=== PATIENT | female | born 1930 | race Caucasian/White ===

== ENCOUNTER 2017-01-08 18:21 | Inpatient (IN) | payer OTHER ==
[~2017-01-08] VITALS: Ht 144.8 cm; Wt 49.9 kg
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
[2017-01-08] MEDS ORDERED: AMLODIPINE BESYL5 M1 PO (18:53)
[2017-01-08] MEDS ORDERED: CARVEDILOL12.5 M1 PO (18:53)
[2017-01-08] MEDS ORDERED: ATORVASTATIN CA80 M1 PO (18:53)
[2017-01-08] MEDS ORDERED: DORZOLAMIDE-TIM10 ML OPH (18:54)
[2017-01-08] MEDS ORDERED: ALLOPURINOL100 M1 PO (18:55)
[2017-01-08] MEDS ORDERED: REVLIMID25 M1 PO (18:55)
[2017-01-08] MEDS ORDERED: PRILOSEC OTC20 M1 PO (18:55)
[2017-01-08] MEDS ORDERED: DEXAMETHASONE4 M1 PO (18:56)
[2017-01-08] MEDS ORDERED: ASPIRIN EC81 M1 PO (18:57)
[2017-01-08] MEDS ORDERED: LASIX40 M1 PO (19:12)
[2017-01-08] MEDS ORDERED: CENTRUM SILVER1 EACH PO (19:12)
[2017-01-08] MEDS ORDERED: KONSYL FIBER625 MG PO (19:13)
[2017-01-08] MEDS ORDERED: CALTRATE 600 +1 EACH PO (19:13)
[2017-01-08] MEDS ORDERED: NEURONTIN100 M1 PO (19:14)
[2017-01-08] MEDS ORDERED: VITAMIN B-121000 MC3 PO (19:15)
[2017-01-08] MEDS ORDERED: [UNRECOGNIZED DRUG - OTHER] PO (19:15)
--- NOTE | 2017-01-08 19:18 | RADIOLOGY REPORT ---
EXAMINATION: LEFT KNEE 3 VIEWS CLINICAL INFORMATION: Left knee pain after fall. COMPARISON: None. TECHNIQUE: AP, lateral, oblique views of the left knee were obtained. FINDINGS: There are no fractures or dislocations. There is no knee joint effusion. There is no significant soft tissue swelling. IMPRESSION: Unremarkable left knee radiographs.
--- NOTE | 2017-01-08 19:23 | RADIOLOGY REPORT ---
EXAMINATIONS: PELVIS 1 VIEW AND LEFT HIP 2 VIEWS CLINICAL INFORMATION: Left hip pain after fall. COMPARISON: None. TECHNIQUE: A supine view of the pelvis is provided. AP neutral and frog-leg lateral views of the left hip are provided. FINDINGS: There are no fractures. Both femoral heads are seated within well-formed acetabula. No dysplastic changes are identified. Moderate degenerative changes present within the lower lumbar spine. The visualized bowel gas pattern is unremarkable. IMPRESSION: No evidence for acute injury to the pelvis or left hip.
--- NOTE | 2017-01-08 20:41 | CT SCAN REPORT ---
EXAMINATION: CT PELVIS WITHOUT CONTRAST CLINICAL INFORMATION: Pelvic and hip pain after fall. COMPARISON: Same day pelvic and left hip radiographs. TECHNIQUE: Helical scanning was performed with submillimeter collimation through the pelvis. Sagittal and coronal multiplanar 2-D reconstructions were obtained. DLP: 1030 mGy-cm FINDINGS: PELVIS: There is no pelvic free fluid. Unopacified loops of small and large bowel are identified. The urinary bladder is markedly distended. A pessary is identified. There is a fat-containing right inguinal hernia. OSSEOUS STRUCTURES: There is a subcapital left femoral fracture without displacement or angulation. No additional acute osseous abnormalities are identified. IMPRESSION: Subcapital left femoral fracture without displacement or angulation.
[2017-01-08 22:19] LABS: ABSOLUTE BASOPHIL COUNT 0 /CUMM (0.0-0.2); ABSOLUTE EOSINOPHIL COUNT 0.1 /CUMM (0.0-0.7); ABSOLUTE GRANULOCYTE CT 9.7 /CUMM (1.4-6.5); ABSOLUTE LYMPH COUNT 0.7 /CUMM (1.2-3.4); ABSOLUTE MONOCYTE COUNT 0.1 /CUMM (0.10-0.60); BASOPHIL % 0 % (0.0-2.0); EOSINOPHIL % 0.8 % (0-5); HEMATOCRIT 32.5 % (37-47); MEAN CORPUSCULAR HGB 30.9 PG (27.0-31.0); MEAN CORPUSCULAR HGB CONC 32.4 G/DL (33.0-37.0); MEAN CORPUSCULAR VOLUME 95.6 FL (81.0-99.0); MEAN PLATELET VOLUME 9.6 FL (7.4-10.4); PLATELET COUNT 174 /CUMM (130-400); RBC DISTRIBUTION WIDTH 15.7 % (11.5-14.5); WHITE BLOOD CELL COUNT 10.6 /CUMM (4.8-10.8)
[2017-01-08 22:31] LABS: PT 11.3 SEC (9.4-12.5); PTT 27 SEC (25-37)
[2017-01-08 22:33] LABS: GRANULOCYTE % 91.6 % (42.2-75.2)
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
[2017-01-08 23:53] VITALS: BP 172/78
--- NOTE | 2017-01-09 01:34 | Admission Certification ---
Admission Certification Certification Statement - As attending physician, I certify that at the time of - admission, based on clinical presentation, severity of - symptoms, need for further diagnostic testing and - therapeutic interventions, and risk of adverse outcomes - without in-hospital treatment, in my clinical assessment, - this patient requires an acute hospital stay for a minimum - of two nights or longer. I have also considered psychsocial - factors such as support system, advanced age, financial - issues, cognitive issues, and failed out-patient treatments, - past re-admission history, safety of patient, and lack of - compliance as applicable. Specific rationale supporting this admission is: Mechanical fall, left hip fracture, needs inpatient admission for pain management, Ortho consult and repair, followed by PT eval and STR.
--- NOTE | 2017-01-09 02:56 | History & Physical ---
LATOYA FORRESTER,WARD 01/09/17 0256: General Information and HPI MD Statement: I have seen and personally examined JEREMY GARCIA and documented this H&P. The patient is a 86 year old F who presented with a patient stated chief complaint of [fall]. Source of Information: patient, family Exam Limitations: no limitations History of Present Illness: This is a 86-year-old female past medical history significant for CAD status post stent, multiple myeloma on treatment with Revlimid, hypertension, IBS, chronic pain, who was brought in by ambulance for chief complaint of left hip pain status post fall. Patient described it as a mechanical fall after tripping on her rug. Denies any prodrome, chest pain, palpitation, dizziness, confusion, denies loss of consciousness, no head trauma, loss of bladder, or loss of bowel. She was able to get up after the fall, but was not able to bear weight fully on her left leg. Patient states that pain is worsened by movement. She had taken tramadol earlier in the day as part of her regimen for her chronic pain. Allergies/Medications Home Med list Allopurinol 100 MG TABLET 1 TAB PO DAILY GOUT (Reported) Amlodipine Besylate 5 MG TABLET 1 TAB PO DAILY BP (Reported) Aspirin (Ecotrin*) 81 MG TABLET.DR 162 MG PO DAILY HEART/BLOOD (Reported) Atorvastatin Calcium 80 MG TABLET 1 TAB PO DAILY CHOLESTEROL (Reported) Calcium Carbonate/Vitamin D3 (Caltrate 600 + D Tablet) (Unknown Strength) TABLET (Unknown Dose) PO DAILY SUPPLEMENT (Reported) Calcium Polycarbophil (Konsyl Fiber) (Unknown Strength) TABLET (Unknown Dose) PO BID SUPPLEMENT (Reported) Carvedilol 12.5 MG TABLET 1 TAB PO BID BP (Reported) Cyanocobalamin (Vitamin B-12) 1,000 MCG TABLET 1 TAB PO DAILY SUPPLEMENT ( Reported) Dexamethasone 4 MG TABLET 5 TAB PO Q28D STEROID (Reported) Dorzolamide HCl/Timolol Maleat (Dorzolamide-Timolol Eye Drops) 22.3 MG-6.8 MG/ML DROPS 1 GTT OPH DAILY BOTH EYES (Reported) Furosemide (Lasix) 40 MG TABLET 1 TAB PO PRN DIURETIC (Reported) Gabapentin (Neurontin) 100 MG CAPSULE 1 CAP PO TID NERVE PAIN (Reported) Lenalidomide (Revlimid) 25 MG CAPSULE 1 CAP PO QTUES CHEMO (Reported) [METAFOLIN] 800 MCG PO DAILY SUPPLEMENT (Reported) Multivit-Min/Iron/Folic/Lutein (Centrum Silver Women Tablet) 8 MG IRON-400 MCG- 300 MCG TABLET 1 TAB PO DAILY SUPPLEMENT (Reported) Omeprazole Magnesium (Prilosec Otc) 20 MG TABLET. 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 Home Services at Home: None Smoking Status: Never Smoked Illicit Drug Use: denies illicit drug use Functional Ability ADLs Independent: dressing, eating, toileting, bathing. IADLs Independent: shopping, housework, finances, food prep, telephone, transportation , medication admin. Review of Systems Review of Systems Constitutional: Denies: chills, diaphoresis, fever, malaise, weakness. EENTM: Reports: no symptoms. Denies: blurred vision, visual changes. Cardiovascular: Denies: chest pain, palpitations. Respiratory: Denies: cough, short of breath. GI: Denies: abdominal pain. Genitourinary: Reports: no symptoms. Musculoskeletal: Reports: back pain, joint pain, muscle pain, muscle stiffness. Skin: Reports: no symptoms. Neurological/Psychological: Reports: no symptoms. Exam & Diagnostic Data Last 24 Hrs of Vital Signs/I&O Vital Signs Date Time Temp Pulse Resp B/P Pulse O2 O2 Flow FiO2 Ox Delivery Rate 01/09 0057 82 172/78 01/08 2353 98.3 83 20 172/78 93 Room Air 01/08 1836 97.0 66 18 188/87 97 Room Air Intake & Output 01/09 0800 01/09 0000 01/08 1600 Intake Total Output Total Balance Patient 50.349 kg 49.895 kg Weight Physical Exam General Appearance Alert, Oriented X3, Cooperative, No Acute Distress Skin No Rashes, No Breakdown, No Significant Lesion HEENT Atraumatic, PERRLA, EOMI Neck Supple Cardiovascular Pt has 3/6 systolic murmur that is particularly loud in mitral area and seems to radiate to axilla. However, murmur is generally heard throughout examination, particularly in Ao area as well. Lungs Normal Air Movement Abdomen Soft, No Tenderness Extremities last lower extremity shows no evidence of cyanosis, open fracture, erythema, contusion. Patient tender and on femur and hip. No tenderness to knee or ankle. Vascular Normal Pulses, Pulses Symmetrical Last 24 Hrs of Labs/[place]: Laboratory Tests 01/08/17 2212: Anion Gap 12, Estimated GFR 43 L, BUN/Creatinine Ratio 18.3, Glucose 95, Calcium 9.8, Total Bilirubin 0.8, AST 40 H, ALT 36, Alkaline Phosphatase 69, Total Protein 6.9, Albumin 4.4, Globulin 2.5, Albumin/Globulin Ratio 1.8, PT 11.3, INR 1.08, APTT 27, CBC w Diff NO MAN DIFF REQ, RBC 3.40 L, MCV 95.6, MCH 30.9, RDW 15.7 H, MPV 9.6, Gran % 91.6 H, Lymphocytes % 6.2 L, Monocytes % 1.4 L, Eosinophils % 0.8, Basophils % 0 L, Absolute Granulocytes 9.7 H, Absolute Lymphocytes 0.7 L, Absolute Monocytes 0.1 L, Absolute Eosinophils 0.1 , Absolute Basophils 0, PUBS MCHC 32.4 L Microbiology 01/08 2258 URINE ROUT: Urine Culture - RECD Assessment/Plan Assessment: This is a 86-year-old female past medical history single for CAD status post stent, multiple myeloma undergoing treatment with Revlimid, hypertension, diabetes, chronic pain who was brought in by ambulance for chief complaint of hip pain status post mechanical fall. CT confirms subcapital left femoral fracture without displacement. Patient admitted to medical service for risk assessment prior to orthopedic procedure in a.m. ED workup shows: Vitals: 97.0, 66, 18, 188/87, 97. CBC shows white count 10.6, hemoglobin 10.5, hematocrit 32.5, platelet 174. INR 1.08. Sodium 138, potassium 3.9, chloride 100, CO2 26, BUN 22, creatinine 1.2 CT PELVIS IMPRESSION: Subcapital left femoral fracture without displacement or angulation. Plan: 1. Subcapital left femoral fracture: Plan is for left hip pIN versus hemiarthroplasty tomorrow. She is CAD s/p PCI, only on baby aspirin. She requires cardiac clearance prior to procedure. RCRI =1. * Nothing by mouth at midnight * Bedrest * Mechanical DVT prophylaxis * Pain control * Echocardiogram * Thank you ortho consult 2. Multiple Myeloma: Pt on weekly Revlimid and followed by Dr. King. Chronic and stable. * Con't Revlimid 3. HTN: Pt with BP in 170s initially. Likely 2/2 pain and underlying HTN. * Con't home regimen. FULL CODE NPO [facility] Dvt PPX. As Ranked By This Provider Problem List: 1. Fall 2. Subcapital fracture of femur Core Measures/Miscellaneous Acute Coronary Syndrome ACS Diagnosis: No Cerebrovascular Accident CVA/TIA Diagnosis: No Congestive Heart Failure CHF Diagnosis: No Venous Thromboembolism VTE Risk Factors: Acute medical illness, Age > 40 No [facility] VTE prophylaxis d/t: No contraindications No VTE Pharm Prophylaxis d/t: Surgical contraindication VTE Diagnosis: No VTE Type: NONE VTE Confirmed by (Test): NONE Severe Sepsis Severe Sepsis Present: No Septic Shock Septic Shock Present: No Miscellaneous Documentation Attending Case Discussed With: MONIKA PATEL MD Primary Care Physician: BRIANA ALCANTAR MD Patient sees these Specialists Dr. Christine Horan Level of Patient Care: General Medicine GABBY FORRESTER,[facility] 01/09/17 0256: Resident Review Statement Resident Statement: examined this patient, discussed with fashion buying internship, agreed with fashion buying internship, discussed with family, reviewed EMR data (avail), discussed with nursing , discussed with case mgmt, reviewed images, amended to note Other Findings: Jeremy is an 86-year-old woman with a medical history of multiple myeloma hypertension coronary artery disease with stent IBS chronic pain syndrome who presents with a mechanical fall resulting in a left subcapital femoral fracture. She is awake alert oriented, does not appear ill. Her pain is well controlled she denies any other symptoms after review in detail. She is afebrile blood pressure is elevated at 172/78 heart rate is 83, she saturating 93-97% on room air. Labs are notable for normocytic anemia, creatinine is 1.2. RCRI score 1. - Problems - Left subcapital femoral fracture Multiple myeloma Coronary artery disease Hypertension - Plan - Nothing by mouth at midnight Adequate pain control Anticipating surgery Cardiology consultation Echocardiogram Orthopedic consultation Continue Revlimid Continue antihypertensive medications DVT prophylaxis heparin Full code AMANDA FORRESTER, [facility] 01/09/17 0519: General Information and HPI Allergies/Medications Allergies: Coded Allergies: lactose (Intermediate, INTOLERANT 01/09/17) Attending MD Review Statement Attending Statement Attending MD Statement: examined this patient, discuss w/resident/PA/PRODUCTION LINE ASSEMBLER, agreed w/resident/PA/PRODUCTION LINE ASSEMBLER, discussed with family Attending Assessment/Plan: 86 yo F with h/o HTN, CAD s/p stent (20 yrs ago), multiple myeloma on Revlimid and dexamethasone (follows Dr. King @ [facility]), osteoarthritis, chronic pain on tramadol, osteoporosis (receives infusions, last in Oct 2016), is here s/p mechanical fall sustaining a left subcapital femoral fracture. She was unable to bear weight on her left leg with excruciating pain, hence came to ER. She denies CP, palpitations, dyspnea or lightheadedness. Denies head strike or LOC. She follows with Dr. Aung Cheema ([facility] at [place]). She has a h/o CKD in the setting of multiple myeloma. No baseline renal functions available in [place] records. No h/o DM, CHF or stroke. Vitals stable except for hypertension in the setting of pain. Exam: AAO, dry mucous membranes, Chest b/l clear, Heart S1S2 regular, systolic murmur+, LLE: shortened, peripheral pulses well felt. Labs: H/H 10.5/32.5, INR 1.08, BUN 22, creat 1.2 (no baseline available), AST 40. Imaging revealed left subcapital femoral fracture with no displacement or angulation. EKG: SR, nonspecific T wave changes (no previous EKG). 1. Mechanical fall now with left femur fracture. GM admit, NPO, IV fluids, pain management, per RCRI she has 1 risk factor (CAD s/p stent in the setting of positive stress test), no CHF/s troke, DM or creat > 2.0; placing her at 1.3 percent risk of perioperative major cardiac event, ok to proceed with surgery. Will check troponin, obtain Echo and Cardio consult for clearance prior to surgery. 2. Multiple myeloma. Ct. Revlimid (once a week) and dexamethasone (once a month) . 3. h/o CAD. Ct. Carvedilol, atorvastatin. Hold aspirin prior to surgery. DVT ppx Alps, post surgery can change to Hep SC. Full code.
[2017-01-09 06:23] VITALS: BP 138/64
--- NOTE | 2017-01-09 07:14 | PN- Orthopedic ---
Subjective Subjective: The patient was seen this morning. She reports that she was having significant pain in her left leg but just received some pain medication which helped significantly. She has no other complaints at the current time. Objective Vital Signs and I&Os Vital Signs Date Time Temp Pulse Resp B/P Pulse O2 O2 Flow FiO2 Ox Delivery Rate 01/09 0623 98.1 72 20 138/64 86 Room Air 01/09 0559 94 Nasal 2.0L Cannula 01/09 0057 82 172/78 01/08 2353 98.3 83 20 172/78 93 Room Air 01/08 1836 97.0 66 18 188/87 97 Room Air Intake & Output 01/09 0800 01/09 0000 01/08 1600 01/08 0800 01/08 0000 01/07 1600 Intake Total Output Total 600 Balance -600 Output, Urine 600 Patient 111 lb 110 lb Weight Physical Exam: Gen.: Alert and in no obvious distress Skin: Warm and dry Extremities: Bilateral lower extremities are warm without calf tenderness. Gross motor and sensory are intact. Left lower extremity shortened and rotated. Left hip with some tenderness upon palpation. There is some mild edema in the calf but compartments are soft and the overlying skin is intact. Assessment/Plan Assessment/Plan Assessment: 86-year-old female status post fall who sustained a left femoral fracture requiring operative repair. The patient's will be brought to the operating theater if deemed an acceptable risk by her primary team and cardiology. Recommendations: Keep nothing by mouth with IV hydration PRN pain medications Strict bed rest until operative repair GI and DVT prophylaxis Follow-up morning laboratory studies
[2017-01-09 08:19] LABS: ABSOLUTE BASOPHIL COUNT 0 /CUMM (0.0-0.2); ABSOLUTE EOSINOPHIL COUNT 0.3 /CUMM (0.0-0.7); ABSOLUTE GRANULOCYTE CT 8.1 /CUMM (1.4-6.5); ABSOLUTE LYMPH COUNT 0.5 /CUMM (1.2-3.4); ABSOLUTE MONOCYTE COUNT 0.6 /CUMM (0.10-0.60); BASOPHIL % 0.2 % (0.0-2.0); EOSINOPHIL % 2.6 % (0-5); MEAN CORPUSCULAR HGB 30.9 PG (27.0-31.0); MEAN CORPUSCULAR HGB CONC 32.7 G/DL (33.0-37.0); MEAN CORPUSCULAR VOLUME 94.4 FL (81.0-99.0); MEAN PLATELET VOLUME 9.7 FL (7.4-10.4); PLATELET COUNT 144 /CUMM (130-400); RED BLOOD CELL CT 2.68 /CUMM (4.20-5.40); WHITE BLOOD CELL COUNT 9.5 /CUMM (4.8-10.8)
[2017-01-09 08:30] LABS: HEMATOCRIT 25.3 % (37-47)
[2017-01-09 08:56] LABS: GRANULOCYTE % 84.8 % (42.2-75.2)
--- NOTE | 2017-01-09 10:44 | Cons- Cardiology ---
General Information and HPI Consulting Request Date of Consult: 01/09/17 Requested By: AMANDA FORRESTER,MONIKA History of Present Illness: Ms. Galaviz is an 86 year old female with history of coronary artery disease who presents to [facility] after a fall resulting in a left hip fracture. She now anticipates surgical repair. The patient tripped on a throw rug and denies any lightheadedness, syncope or palpitations associated with the fall. At her baseline she is active for her age. When shopping and holding a shopping cart she can walk briskly and without the cart she walks at a normal pace. 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 The patient denies chest pain, pressure, tightness, shortness of breath or palpitations. Occasionally, when taking her medication for her multiple myeloma she will feel lightheaded. The patient's last stress test and echo were reportedly WNL. It should be noted that this patient is severely anemic, likely due to her multiple myeloma but denies feeling weak. Allergies/Medications Allergies: Coded Allergies: lactose (Intermediate, INTOLERANT 01/09/17) Home Med List: Allopurinol 100 MG TABLET 1 TAB PO DAILY GOUT (Reported) Amlodipine Besylate 5 MG TABLET 1 TAB PO DAILY BP (Reported) Aspirin (Ecotrin*) 81 MG TABLET.DR 162 MG PO DAILY HEART/BLOOD (Reported) Atorvastatin Calcium 80 MG TABLET 1 TAB PO DAILY CHOLESTEROL (Reported) Calcium Carbonate/Vitamin D3 (Caltrate 600 + D Tablet) (Unknown Strength) TABLET (Unknown Dose) PO DAILY SUPPLEMENT (Reported) Calcium Polycarbophil (Konsyl Fiber) (Unknown Strength) TABLET (Unknown Dose) PO BID SUPPLEMENT (Reported) Carvedilol 12.5 MG TABLET 1 TAB PO BID BP (Reported) Cyanocobalamin (Vitamin B-12) 1,000 MCG TABLET 1 TAB PO DAILY SUPPLEMENT ( Reported) Dexamethasone 4 MG TABLET 5 TAB PO Q28D STEROID (Reported) Dorzolamide HCl/Timolol Maleat (Dorzolamide-Timolol Eye Drops) 22.3 MG-6.8 MG/ML DROPS 1 GTT OPH DAILY BOTH EYES (Reported) Furosemide (Lasix) 40 MG TABLET 1 TAB PO PRN DIURETIC (Reported) Gabapentin (Neurontin) 100 MG CAPSULE 1 CAP PO TID NERVE PAIN (Reported) Lenalidomide (Revlimid) 25 MG CAPSULE 1 CAP PO QTUES CHEMO (Reported) [METAFOLIN] 800 MCG PO DAILY SUPPLEMENT (Reported) Multivit-Min/Iron/Folic/Lutein (Centrum Silver Women Tablet) 8 MG IRON-400 MCG- 300 MCG TABLET 1 TAB PO DAILY SUPPLEMENT (Reported) Omeprazole Magnesium (Prilosec Otc) 20 MG TABLET. 1 TAB PO DAILY GI ( Reported) Review of Systems Review of Systems: A twelve point review of systems is unremarkable. 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 Home Services at Home: None Smoking Status: Never Smoked Illicit Drug Use: denies illicit drug use Functional Ability ADLs Independent: dressing, eating, toileting, bathing. IADLs Independent: shopping, housework, finances, food prep, telephone, transportation , medication admin. Exam & Diagnostic Data Vital Signs and I&O Vital Signs Date Time Temp Pulse Resp B/P Pulse O2 O2 Flow FiO2 Ox Delivery Rate 01/09 0800 96 Nasal 2.0L Cannula 01/09 0623 98.1 72 20 138/64 86 Room Air 01/09 0559 94 Nasal 2.0L Cannula 01/09 0057 82 172/78 01/08 2353 98.3 83 20 172/78 93 Room Air 01/08 1836 97.0 66 18 188/87 97 Room Air Intake & Output 01/09 1600 01/09 0800 01/09 0000 01/08 1600 01/08 0800 01/08 0000 Intake Total 600 Output Total 600 Balance 0 Intake, IV 600 Output, Urine 600 Patient 111 lb 110 lb Weight Physical Exam: General: WD/ WN female in NAD; alert and oriented x 3 HEENT: NC/ AT, PERRL, EOMI, clear oropharynx Neck: no JVD, no carotid bruit Heart: RRR with 3/6 systolic murmur at the RUSB Lungs: clear bilaterally Abdomen: soft, NT, +ve bowel sounds Extremities: no edema Diagnostic Data EKG Results normal sinus rhythm with non-specific lateral ST-T changes Assessment/Plan Assessment/Plan * This patient experienced a fall related to tripping on a throw rug. It is possible that weakness due to her anemia and multiple myeloma prevented her from catching herself. Regardless, she now anticipates surgery for repair of a left hip fracture. This patient is active for her age and is without any symptoms of myocardial ischemia or decompensated congestive heart failure. As such, she is a reasonable candidate for surgery at this time without any additional cardiac workup. * This patient does have a murmur consistent with aortic sclerosis or possibly stenosis but I do not think this is significant. We will obtain an echocardiogram but her surgery will not need to be delayed for these results. Consult Acknowledgment - Thank you for your consult request.
--- NOTE | 2017-01-09 12:45 | PN- Att Addend ---
Attending Addendum Attending Brief Note Patient seen and examined. Plan of care discussed with the medical team and the patient. Available lab work and radiology test reports were reviewed. Patient appears comfortable and she only complains of mild pain and left hip area. She denies any recent chest pain nausea vomiting fever chills or difficulty breathing. Vital Signs Date Time Temp Pulse Resp B/P Pulse O2 O2 Flow FiO2 Ox Delivery Rate 01/09 1037 Nasal 2.0L Cannula 01/09 0800 96 Nasal 2.0L Cannula 01/09 0623 98.1 72 20 138/64 86 Room Air 01/09 0559 94 Nasal 2.0L Cannula 01/09 0057 82 172/78 01/08 2353 98.3 83 20 172/78 93 Room Air 01/08 1836 97.0 66 18 188/87 97 Room Air Intake & Output 01/09 1600 01/09 0800 01/09 0000 Intake Total 600 Output Total 600 Balance 0 Intake, IV 600 Output, Urine 600 Patient 111 lb 110 lb Weight Exam: General: Patient awake alert oriented without any distress CVS: S1 plus S2 without any murmur or gallops Chest: Few scattered crepitation without any wheeze. There is no respiratory distress. Abdomen: Soft nontender, bowel sound present, no guarding or rebound BANKRUPTCY JUDGE: Awake alert oriented without any focal neuro deficit and follows command appropriately Extremities: No edema; no clubbing or cyanosis noted; left leg was not moved due to pain Laboratory Tests 01/09 01/08 0630 2212 Chemistry Sodium (137 - 145 mmol/L) 137 138 Potassium (3.5 - 5.1 mmol/L) 4.2 3.9 Chloride (98 - 107 mmol/L) 103 100 Carbon Dioxide (22 - 30 mmol/L) 26 26 Anion Gap (5 - 16) 7 12 BUN (7 - 17 mg/dL) 21 H 22 H Creatinine (0.5 - 1.0 mg/dL) 1.3 H 1.2 H Estimated GFR (>60 ml/min) 39 L 43 L BUN/Creatinine Ratio (7 - 25 %) 16.2 18.3 Glucose (65 - 99 mg/dL) 95 Calcium (8.4 - 10.2 mg/dL) 9.8 Total Bilirubin (0.2 - 1.3 mg/dL) 0.8 AST (14 - 36 U/L) 40 H ALT (9 - 52 U/L) 36 Alkaline Phosphatase (<127 U/L) 69 Troponin I (< 0.11 ng/ml) < 0.01 Total Protein (6.3 - 8.2 g/dL) 6.9 Albumin (3.5 - 5.0 g/dL) 4.4 Globulin (1.9 - 4.2 gm/dL) 2.5 Albumin/Globulin Ratio (1.1 - 2.2 %) 1.8 Coagulation PT (9.4 - 12.5 SEC) 11.3 INR (0.90 - 1.19) 1.08 APTT (25 - 37 SEC) 27 Hematology CBC w Diff NO MAN DIFF REQ NO MAN DIFF REQ WBC (4.8 - 10.8 /CUMM) 9.5 10.6 RBC (4.20 - 5.40 /CUMM) 2.68 L 3.40 L Hgb (12.0 - 16.0 G/DL) 8.3 L 10.5 L Hct (37 - 47 %) 25.3 L 32.5 L MCV (81.0 - 99.0 FL) 94.4 95.6 MCH (27.0 - 31.0 PG) 30.9 30.9 RDW (11.5 - 14.5 %) 16.0 H 15.7 H Plt Count (130 - 400 /CUMM) 144 174 MPV (7.4 - 10.4 FL) 9.7 9.6 Gran % (42.2 - 75.2 %) 84.8 H 91.6 H Lymphocytes % (20.5 - 51.1 %) 5.6 L 6.2 L Monocytes % (1.7 - 9.3 %) 6.8 1.4 L Eosinophils % (0 - 5 %) 2.6 0.8 Basophils % (0.0 - 2.0 %) 0.2 0 L Absolute Granulocytes (1.4 - 6.5 /CUMM) 8.1 H 9.7 H Absolute Lymphocytes (1.2 - 3.4 /CUMM) 0.5 L 0.7 L Absolute Monocytes (0.10 - 0.60 /CUMM) 0.6 0.1 L Absolute Eosinophils (0.0 - 0.7 /CUMM) 0.3 0.1 Absolute Basophils (0.0 - 0.2 /CUMM) 0 0 PUBS MCHC (33.0 - 37.0 G/DL) 32.7 L 32.4 L Microbiology Date/Time Procedure - Status Source Growth 01/08 9723 Urine Culture - RES URINE ROUT CT pelvis Subcapital left femoral fracture without displacement or angulation The knee x-ray was negative Hip x-ray was negative Assessment * Left hip subcapital fracture * History of multiple myeloma * Probable osteoporosis given steroid treatment in the past * CAD and stent 20 years ago Plan * Patient's overall risk for perioperative cardiac event based on her was Atul index is low. Therefore she can proceed to surgery. * She'll require anti-coagulation to prevent DVT after surgery. * She'll also benefit from anti-osteoporotic treatment; she is only taking calcium and vitamin D3 he did however she will need addition of bisphosphonates.
[2017-01-09 15:02] VITALS: BP 164/76
--- NOTE | 2017-01-09 17:03 | RADIOLOGY REPORT ---
EXAMINATION: INTRAOPERATIVE FLUOROSCOPIC GUIDANCE AND LEFT HIP CLINICAL INFORMATION: Left hip fracture. COMPARISON: 01/08/2017. TECHNIQUE: Fluoroscopic time was utilized in the OR for Dr. Clemens. Fluoroscopic images were obtained in AP and lateral projections. FINDINGS: Fluoroscopic guidance was provided during placement of 3 threaded screws traversing the left femoral neck fracture. Hardware is intact. FLUOROSCOPY TIME: 84 seconds of fluoroscopic time was utilized for the entirety of this examination. IMPRESSION: Fluoroscopic guidance was provided during placement of 3 threaded screws traversing the left femoral neck fracture. Hardware is intact.
[2017-01-09 18:08] VITALS: BP 142/60
--- NOTE | 2017-01-09 19:07 | PN- Orthopedic ---
Subjective Subjective: The patient was seen this evening postoperatively. She complains of mild hip soreness but is relatively comfortable at the current time. She had no other complaints and denies any chest pain or difficulty breathing. Objective Vital Signs and I&Os Vital Signs Date Time Temp Pulse Resp B/P Pulse O2 O2 Flow FiO2 Ox Delivery Rate 01/09 1808 97.6 66 16 142/60 93 Nasal 2.0L Cannula 01/09 1600 93 Nasal 2.0L Cannula 01/09 1502 98.4 64 20 164/76 96 Nasal 2.0L Cannula 01/09 1037 Nasal 2.0L Cannula 01/09 0800 96 Nasal 2.0L Cannula 01/09 0623 98.1 72 20 138/64 86 Room Air 01/09 0559 94 Nasal 2.0L Cannula 01/09 0057 82 172/78 01/08 2353 98.3 83 20 172/78 93 Room Air Intake & Output 01/09 1600 01/09 0800 01/09 0000 01/08 1600 01/08 0800 01/08 0000 Intake Total 630 600 Output Total 200 600 Balance 430 0 Intake, IV 600 600 Intake, Oral 30 Number 2 Bowel Movements Output, Urine 200 600 Patient 111 lb 110 lb Weight Physical Exam: Gen.: Alert and in no obvious distress Skin: Warm and dry Extremities: Bilateral lower extremities are warm without calf tenderness. Gross motor and sensory were intact. Left hip surgical dressing is clean, dry, and intact. Assessment/Plan Assessment/Plan Assessment: 86-year-old female status post left femoral ORIF. Postoperative the patient is progressing as expected and her pain is under adequate control. Recommendations: Continue IV fluids and Flynn catheter until tolerating a diet with adequate urine output GI and DVT prophylaxis 2 doses of postoperative prophylactic antibiotics Per Vu Clemens MD subcutaneous heparin is adequate enough for DVT prophylaxis Continue with current pain regiment Out of bed with physical therapy tomorrow patient is toe-touch weightbearing Follow-up morning laboratory studies Advance diet as tolerated Continue care per primary team
--- NOTE | 2017-01-09 21:46 | Operative Report ---
Operative/Inv Procedure Report Surgery Date: 01/09/17 Name of Procedure: 1) Left Hip Percutaneous Cannulated Screw Interfragmentary Internal Fixation Of Nondisplaced, Impacted , Slightly Valgus Angulated Subcapital Femoral Neck Fracture Pre-Operative Diagnosis: 1) Left Hip Nondisplaced, Impacted, Slightly Valgus Angulated Subcapital Femoral Neck Fracture 2) Osteoporosis 3) Medications Adversely Affecting Osseous Density And Healing 4) Multiple Myeloma Post-Operative Diagnosis: Same as preoperative diagnosis list. Estimated Blood Loss: less than 50ml Surgeon/Buffer Machine: OCTAVIO CLEMENS MD - Primary Consulting Orthopaedic Surgeon Surgical Providers: Octavio Clemens M.D. - Orthopaedic Surgeon (Primary Consulting Surgeon) Anesthesia: general endotracheal tube Monitors: Standard general anesthesia and other perioperative monitoring was performed per anesthesia. Refer to anesthesia and intraoperative electrophysiological monitoring records for details. IV Fluids: Standard anesthesia fluid management was performed without requirement for additional or emergent fluid resuscitation. Refer to anesthesia records for details. Implants: Implants Placed: 3 x Asnis III Partially Threaded Cannulated Screws (75, 80, 85 mm lengths) Graft Placed: None Urine Output: Refer to anesthesia records for details. Drains: None Specimens: None Complications: None Condition: Initial Preoperative Condition: The patients condition was stable to the operating room without vital sign, hemodynamic, cardiopulmonary or other organ system abnormality and without new neurovascular or musculoskeletal functional deficit compared to pain and limited motion tolerance consistent with documented femoral neck fracture noted on orthopaedic surgical consulatation as well as medical admission history and physical evaluations. The patient was cleared preoperatively as optimized for surgery by the primary admitting medical team and cardiology consultation evaluations prior to admission. There were no significant adverse changes evident in the patients condition between the clearance evaluations and the immediate preoperative assessment. Intraoperative Condition: The patient was stable throughout the procedure without vital sign, cardiopulmonary or other monitoring changes, lability, instability or abnormality. Final Postoperative Condition: The patient was extubated and stable to the recovery room with no new deficit or adverse change compared to stable baseline preoperative normal neurological and limited left lower extremity musculoskeletal assessment based on limited evaluation during initial recovery from anesthesia. The patient demonstrated grossly normal spontaneous motion initially as well as later normal motion and function to command in both upper and distal lower extremities once fully awake upon early recovery from anesthesia. There was no swelling, erythema, tenderness, pain with either active or passive motion or any other symptom or finding to suggest a concerning process involving the superficial or deep cutaneous, subcutaneous, muscular, vascular or other tissues related to the immobilization, localized pressure of positioning or traction for surgery. Operative Indication: Tiffanie Galaviz is an 86 year old independently functional white female with a critical medical history of multiple myeloma who presents to the operating room today for percutaneous cannulated screw fixation of left hip nondisplaced femoral neck fracture. The injury occurred yesterday (on the date of admission) in her home when she tripped over the edge of a rug, fell with a slight twist landing on her left side with direct impact to her left lateral hip on the carpeted floor. She noted immediate left hip pain after the fall and was unable to get up, bear weight on or significantly move her left lower extremity, mobilize or ambulate thereafter. She denies any other areas of significant impact or bodily regions of injury or symptoms related to the fall or any other cause. She denies a prodrome to the fall and there is nothing to suggest any medical factors contributing or predisposing to the injury. She was brought to the [facility] Emergency Department where radiographic studies documented the femoral neck fracture detailed below. Her myeloma is followed at [facility] ( [facility]) with no report of significant osseous involvement or treatment which might have contributed to her fall or fracture. No more detailed history is available regarding her oncologic treatment. She denies any prior history of hip pain or other symptoms and has not previously had significant ambulatory difficulty in her home although she does use ambulatory aide at times when out of the home. On orthopaedic consultation evaluation, her physical examination showed her left leg to be shortened and externally rotated without significant swelling or echymosis and without significant soft tissue injury, lacertion or other wound over the fracture region. There was only mild pain to gentle low arc log-roll motion consistent with the relatively stable impacted fracture configuration on radiologic studies. Rotational motion was discontinued immediately at the report of discomfort with no other motion testing performed. Radiologic studies showed a nondisplaced, minimally angulated and slightly valgus impacted left hip femoral neck fracture. These studies were otherwise negative and there was no suggestion of underlying hip pathology related to the fracture other than moderate osteopenia likely representing some degree of osteoporosis consistent with age, gender, steroid treatment and reported prior diagnosis. There were no focal lesions appreciated on radiographs or CT to suggest lytic involvement related to her underlying myeloma diagnosis. Her preoperative laboratory studies were unremarkable except for mild elevation of BUN and Creatinine which was evaluated and cleared by the admitting medicine team prior to surgery. Troponin was checked but was not elevated. Other mild laboratory value changes outside of the [facility] normal ranges were not felt to be significant or affect plans for surgical intervention. See emergency department and medical clearance documents for details. The patient has a critical past medical history of multiple myeloma on Revlimid which is detailed above as well as a significant past history of hypertension, rheumatoid arthritis, osteoporosis and coronary artery disease S/P stenting. She also has an additional positive medical history of irritable bowel syndrome and chronic pain. She has a significant primary past surgical history of cardiac stent placement which is detailed above. She also has a positive secondary past surgical history of bilateral groin surgery and tonsillectomy. She denies any complications, adverse events or outcomes associated with any of the above procedures. Her current and active medications include Allopurinol, Amlodipine, Aspirin, Atorvastatin, Carvedilol, Dexamethasone, Furosemide, Gabapentin, Lenalidomide and Omeprazole. She also reports taking Calcium, B-12, Metapolin and Multivitamin supplements. She denies any adverse effects from any of these medications or supplementss. She denies any history of anaphylactic, anaphylactoid, allergic or significant non-allergic reactions or sensitivities to medications, foods or skin contact environmental allergens. She is a non- smoker and denies significant alcohol intake or other social risk factors that might adversely affect her perioperative care. The above clinical information was reviewed throughout the hospital admission and preoperative confirmation process but did not alter surgical recommendations, treatment plans or perioperative management in this case. Treatment options were discussed in detail directly with the patient. After careful and appropriate consideration she elected to proceed with the planned operative procedure of percutaneous cannulated screw fixation. She also consented to any additional indicated procedure based on intraoperative findings. In addition to the general risks of all surgical procedures (bleeding , infection, anesthesia and other general risks), specific risks of the planned procedure were discussed with the patient including but not limited to tissue injury (nerve, blood vessel, bone, muscle, tendon, ligament, joint, or other tissue structures), medical complications (blood clots, cardiac events, stroke, acute organ failure of any organ), mechanical complications (new fracture or progression of fracture, displacement of bone, fracture or loosening of implants , failure of bone or soft tissue healing), new or exacerbated symptoms ( persistence or worsening of pain, dysesthesias, paresthesias, balance difficulty ), development of new or worsening of preexisting conditions or complications ( avascular necrosis, heterotopic or ectopic bone formation, arthritis, and other medical conditions worsened by trauma, anesthesia, immobility or intraoperative positioning), and need for reoperation at the current or a future related site. The potential need for hemiarthroplasty was discussed and the patient understood that thsi could occur now (if displacement is noted in the operating room) or in the future (if displacement occurs despite fixation or if severe degenerative changes develop). Potential for triggering of neoplastic progression due to the trauma of fall, fracture and/or surgery was also presented. Potential for partial or complete, global or regional loss of motor, sensory, coordination, ambulatory, balance, bladder, bowel or sexual function was reviewed. Remaining potential complications were reviewed in inclusive risk categories ranging through all severity levels from temporary changes to catastrophic outcomes such as complete paralysis, organ failure, disfigurement or . The patient understood and accepted that her risk was slightly above average for this procedure compared to her age and clinical cohort due to her prior intermittent use of ambulatory aide and her oncologic history. The patient and family clearly understood that hip fracture is associated with a high incidence of ambulatory functional loss and that she may have more limited mobility, require additional ambulatory or mobility aide, and possibly have to permanently change residence or level of home care after this injury even with optimal surgical recovery. The patients Health Care Directives status at the time of admission to the hospital was documented and no change in the long-term or immediate status of this directive was requested during the preoperative discussion. The patient was optimized and cleared for surgery at low crdiac and moderate overall operative risk by the admitting [facility] Medical Hospitalist Service and all requested consulting medical subspecialty services including the Cardiology service. Signed operative consent was obtained directly from the patient with good understanding of all reasonable alternatives, indications, goals, expectations, limitations, risks and benefits of the planned procedure. She consented to all phases of the procedure and perioperative care being performed by Dr. Clemens with the assistance of all designated hospital and outpatient practice team members. In the preoperative evaluation area, the patient confirmed her oral intake status as NPO since midnight prior to surgery. Operative/Procedure Note Note: Preoperative Holding Area Assessment/Preparation: The patient was evaluated in the preoperative holding area prior to surgery and no clinical changes or contraindications to surgical intervention were documented compared to the preoperative clearance evaluations. The surgical plan and site were confirmed with the patient and all preoperative paperwork was finalized. The region of the intended surgical site was cleansed, prepped and marked per protocol. The surgeon, anesthesia care team members, and operating room staff confirmed the patient identity, surgical procedure, and operative site as well as other clinical details with the patient in an initial documented preoperative confirmation (awake time out) prior to the administration of sedation or anesthesia. Surgical Procedure: The procedure was performed by Dr. Clemens who was present and served as the primary surgeon for all critical intraoperative and perioperative decisions and interventions. Set-Up/Positioning/Exposure - The patient was brought to the operating room in stable condition and underwent uncomplicated induction of general anesthesia, intubation, and placement of all appropriate monitors, lines and catheters without difficulty. Administration of 2 grams of IV Ancef based on patient body mass was given for surgical prophylaxis and was completed at least 30 and less than 60 minutes prior to making an incision. The patient was positioned supine on the operating traction table in standard fashion for a left hip femoral neck fracture optimization of alignment and percutaneous cannulated screw internal fixation taking care to protect and stabilize the hip during transfer, abduct the right arm on an arm board and adduct the left arm over the torso on a pillow so as to avoid positions of nerve stretch with all pressure points carefully padded. The pelvis was stabilized against the perineal post and the left foot was well padded and secured in the traction boot. The right leg was flexed, abducted and internally rotated as much as possible without causing increased soft tissue tension and secured on the padded leg lancaster in that position taking care to pad all pressure points and document adequate baseline pulse and capillary refill before proceeding. Minimal longitudinal traction was applied to the operative leg through the foot secured in the traction boot only sufficient to align the hip and leg but not so much that the fracture would be at risk of displacement. The operative foot and leg were slightly internally rotated so as to optimize fixation screw trajectory but not so much that fracture fragments would be at risk of shear or relative rotatory displacement. Optimal alignment was documented on preoperative AP, lateral and oblique fluoroscopic spot views. No significant change in stable, slightly valgus-impacted fracture alignment was noted compared to preoperative images. The surgeon, anesthesia care team, and operating room staff again documented the patient identity, surgical procedure, and operative site as well as other clinical details in a final documented confirmation (final time out) prior to beginning the procedure. Exposure - Sterile prep and drape were performed using standard technique with DuraPrep and an Ioban antimicrobial incise curtain drape. Reference lines for the femoral neck and shaft as well as the screw entry point at the lateral flare of the proximal femur were drawn with a marking pen along a radiopaque marker placed on the skin and projected over these structures on AP, lateral and oblique fluoroscopic views. The extent of the incision was then marked and this linear incision was made longitudinally along the proximal lateral thigh extending distally from the femoral flare for approximately 3 cm using a #10 scalpel blade. Hemostasis was achieved using Bovie electrocautery at the skin edges where necessary. The dissection was carried down through the subcutaneous layer and the fascia was divided longitudinally throughout the length of the incision with Metzenbaum scissors using a blunt spreading dissection technique. Further Metzenbaum blunt dissection was carried down to the lateral periosteal surface of the femur. Each successive layer was dissected slightly more proximally than the one superficial to it taking an overall superomedial approach to match the intended guidepin and screw trajectory along the angle of the femoral neck. Percutaneous Cannulated Screw Internal Fixation - Three partially threaded guide pins were then sequentially advanced through the dissected surgical site down to the lateral femoral cortex where the entry point longitudinal levels were confirmed to be optimal on AP fluoroscopic view. The pins were then advanced into the lateral cortex, across the femoral neck and fracture site, and into the femoral head fragment using a drill with freehand technique while checking trajectory and length on orthogonal C-arm views to ensure optimized inverted triangular configuration placement crossing perpendicular to the fracture line and centered about a line parallel to the central axis of the femoral neck so as to gain maximal purchase of the slightly valgus-angulated femoral head fragment. C-arm views were also checked to ensure that the depths of the guide-pin tips were several millimeters below the chondral surface of the joint. The slotted depth gauge was used to measure the appropriate screw lengths from the lateral femoral cortex per its subtraction measurement design. The cannulated cortical entry hole drill bit was used to drill the proximal path for the cannulated screws with orthogonal C-arm views monitoring the depth and trajectory of the drill bit and guide pin to ensure maintenance of central path in the femoral neck and head, drill tip depth (in this case only penetrating the lateral femoral cortical surface without need for full length drilling of the screw path given her obaseline osteoporotic bone density) and no binding or advancement of the guide-pin toward the hip joint surface. The three partially threaded, cancellous Asnis III cannulated screws were then advanced over the guide-pins, through the lateral femoral cortical opening created by the cannulated drill, and into the femoral neck and head with good overall insertional and final fixation torque (consistent with patient age, preoperative diagnosis of osteoporosis and] radiographic osteopenia appreciated intraoperatively). Placement was monitored with orthogonal and oblique fluoroscopic views to ensure that the proper depth was achieved with the distal end of each screw below the chondral surface and with the proximal head end of the screw abutting against the lateral femoral cortex for optimal fixation. Care was taken to avoid any rotation, angulation or displacement of the head- neck fragment during interfragmentary lag screw insertion and final fixation. The final position of the three cannulated, partially threaded interfragmentary fixation screws was confirmed to be in an inverted triangular configuration for optimal fixation and stability on orthogonal C-arm views. The superior anterior screw was 75 mm in length, the superior posterior screw was 80 mm in length and the inferior screw was 85 mm in length. Finally, the leg was rotated under fluoroscopic imaging to document stable fracture fixation without any motion across the fracture on dynamic radiographic evaluation and without penetration too close to the femoral articular surface on multiple angle projections. Final C-arm images were saved to the hospital PACS system prior to closure. Closure/Recovery - The surgical site was thoroughly irrigated and hemostasis was carefully achieved prior to closure. Initial counts were correct. The edge of the tensor and vastus lateralis fascia was reapproximated using a single simple #2-0 Vicryl suture. The deep and superficial subcutaneous closure was achieved with #2-0 and #3-0 undyed Vicryl respectively using an inverted, interrupted technique. The skin was closed using bre with the skin edges everted. A standard, sterile small island dressing was placed with good coverage. All final counts were correct prior to removing the drapes. The foot section of the table was reattached and the patient's lower extremities were removed from the traction table attachments and returned to the resting position. Bilateral pulses and capillary refill were confirmed to be normal and similar to preoperative status. The patient was extubated in the operating room on the operating table without difficulty and transferred to the hospital bed in the supine position taking care to support the hip during transfer. Recovery Room Assessment: The patient was transported to the recovery room in stable condition where gross neurological examination showed no deficits on initial recovery from anesthesia. Gentle log roll of the operative leg was not associated with the same discomfort that she had reported preoperatively although there was still some discomfort consistent with her injury, fracture and postoperative state. She will follow the usual postoperative protocol for percutaneous interfragmentary cannulated screw internal fixation of minimally angulated and valgus-impacted but overall stable subcapital femoral neck hip fracture. This will include early mobilization to a chair, supervised transfers and progressive ambulation limited to protected (toe-touch only) weight-bearing as tolerated using a walker and discharge planning in preparation for transfer to inpatient rehabilitation program as patient is an excellent short-term rehabilitation candidate by orthopaedic criterion. Findings: 1) Good insertional and final torque of screws with reasonably good fixation given known osteoporosis and decreased bone density. 2) Good alignment and fixation of fracture as documented by fluoroscopic images including gentle dynamic rotation views demonstrating singular motion of the neck and head fragments after fixation. 3) Good final position and fixation of screws by final fluoroscopic image assessment. 4) Normal preliminary postoperative examination with no deficits or abnormalities noted upon initial recovery from anesthesia. Discharge Disposition: PACU Additional Comments: The patient will continue primary management on the [facility] Hospitalist Service postoperatively as her complex combination of medical conditions is more likely to acutely affect her overall health status than her orthopaedic surgical conditions or postoperative status. The orthopaedic service will continue consultative daily follow-up throughout the perioperative period and be available for any acute issues related to her perioperative or orthopaedic surgical condition. As per discussion with the patient and family preoperatively, her previously designated resuscitation status will be continued per her Health Care Directives documentation. Standard postoperative protocol for percutaneous screw internal fixation of femoral neck fracture will include: Continue perioperative antibiotics for a total of 24 hours (3 total doses of IV Ancef 2 grams q8 hours including the initial intraoperative dose). Dressing changes should be performed at POD #2 and then daily thereafter until POD #5 or until the dressing and incision are clean and dry for 48 hours, whichever is latest. The patient may mobilize to a chair and for progressive ambulation with initial physical therapy and then subsequent nursing care supervision and may be protected (toe-touch only) weight-bearing as tolerated on her operated left lower extremity. She can progress with gentle short arc hip range of motion as tolerated but should avoid high arc, vigorous or stress rotation or motion for at least 6 weeks. Advance normal diet as tolerated and without any required restrictions. Balanced diet is recommended to support optimal surgical site and osseous healing. The patient is at low intravascular thromboembolic risk from an orthopaedic standpoint with available literature suggesting that sequential compression and early mobilization should be sufficient for prophylaxis. From an orthopaedic standpoint, the patient's preoperative Aspirin regimen can be restarted whenever it is determined safe by the medicine service. If early and consistent mobilization cannot be achieved for any reason or if additional medical factors increase thromboembolic risk then subcutaneous Heparin therapy would be reasonable. If more aggressive prophylaxis is to be considered during the first postoperative week please consult Dr. Clemens prior to initiating this treatment so that any necessary changes can be made to the patients surgical site monitoring, nursing and physical therapy orders given the patients early postoperative status. Discharge planning for transfer to inpatient short term rehabilitation facility can begin on POD #1 or POD #2 depending on the patients progress toward meeting clinical and functional criteria for that type of program. From an orthopaedic standpoint, the patient can be transferred as soon as standard criteria are met. Contact Dr. Clemens if the patient is not being transferred to an inpatient rehabilitation program, if she is not ready for discharge within a standard 2-3 day postoperative stay, or if there are any questions regarding orthopaedic surgical aspects of discharge planning. The patient's pain and other medication management will be deferred to the primary inpatient medical team and supervising physician at the inpatient rehabilitation facility. The orthopaedic service will be available for contact or consultation if there are any questions or concerns regarding medication management specific to her hip fracture or perioperative status. Assuming standard postoperative course, arrangements should be made for staple removal and anterior-posterior and lateral left hip radiographs at 2 weeks postoperatively. Radiographs will also be planned for the 6 week postoperative evaluation. If the patient is still at the rehabilitation center, has difficulty with transportation, and does not specifically need orthopaedic surgical assessment based on supervising rehabilitation physician evaluation then staple removal and portable radiographs can be performed at the rehabilitation facility and the radiographs sent for office review. Otherwise the patient will be seen at the office for initial follow-up at those times. CC: STEPHANIE FORRESTER,OCTAVIO Leonardo
[2017-01-09 22:16] VITALS: BP 138/64
[2017-01-10 03:27] VITALS: BP 134/66
[2017-01-10 06:51] VITALS: BP 138/68
--- NOTE | 2017-01-10 07:35 | PN- Housestaff ---
ELODIA FORRESTER,[facility] 01/10/17 0735: Subjective Follow-up For: Mechanical fall Left femoral ORIF POD#1 History of carotid artery disease status post stent Anemia of acute blood loss Subjective: Patient was seen and examined this morning, she reported that his left hip pain improved significantly with pain medication (morphine and Percocet), she complained of pain at dorsal surface of feet 4/10, she started to have this pain yesterday night, patient denied having this pain at the time of the fall, denied weakness, numbness. Patient reported history of peripheral neuropathy, she thinks this pain is different from the pain she used to have with peripheral neuropathy as it's more of an achy pain, patient reported that this pain improved significantly with pain medication as well. Patient denied any fever, chills, shortness of breath, cough, palpitation, chest pain. Patient had a PT session today, was able to sat on the chair, patient appeared comfortable. Vital signs are stable, on nasal cannula 2 L with saturation 92%. Review of Systems Constitutional: Reports: see HPI. Objective Last 24 Hrs of Vital Signs/I&O Vital Signs Date Time Temp Pulse Resp B/P Pulse O2 O2 Flow FiO2 Ox Delivery Rate 01/10 0939 Nasal 2.0L Cannula 01/10 0901 92 136/58 01/10 0651 98.7 84 20 138/68 92 Nasal 2.0L Cannula 01/10 0327 98.1 75 20 134/66 91 Nasal 2.0L Cannula 01/10 0000 Nasal 2.0L Cannula 01/09 2237 138/64 01/09 2216 97.6 68 22 138/64 94 Room Air 01/09 1808 97.6 66 16 142/60 93 Nasal 2.0L Cannula 01/09 1600 93 Nasal 2.0L Cannula 01/09 1502 98.4 64 20 164/76 96 Nasal 2.0L Cannula Intake & Output 01/10 1600 01/10 0800 01/10 0000 Intake Total 600 720 Output Total 290 750 Balance 310 -30 Intake, IV 600 600 Intake, Oral 120 Output, Urine 290 750 Patient 49.895 kg Weight Physical Exam General Appearance: Alert, Oriented X3, Cooperative, No Acute Distress Skin: No Rashes, No Breakdown, No Significant Lesion, surgical site, minimal bleeding, no bruises HEENT: Atraumatic, PERRLA, EOMI, Mucous Membr. moist/pink Neck: Supple Cardiovascular: Regular Rate, Normal S1, Normal S2, systolic murmur grade 3/6 at right sternal border Lungs: Clear to Auscultation, Normal Air Movement Abdomen: Normal Bowel Sounds, Soft, No Tenderness Neurological: Normal Speech, Strength at 5/5 X4 Ext, Normal Tone, Sensation Intact, Cranial Nerves 3-12 NL, Reflexes 2+ Extremities: No Clubbing, No Cyanosis, No Edema, Normal Pulses Assessment/Plan Assessment: Ms. Galaviz is 86-year-old female past medical history significant for single for CAD status post stent, multiple myeloma on Revlimid, hypertension, diabetes, chronic pain who was brought in by ambulance for chief complaint of hip pain status post mechanical fall. CT confirms subcapital left femoral fracture without displacement. CT PELVIS IMPRESSION: Subcapital left femoral fracture without displacement or angulation. Plan: #Subcapital left femoral fracture: -Status post ORIF Day 1 -Optimal pain control: Percocet 1 tab mild pain every 4 hours, Percocet 2 tabs moderate pain every 4, morphine 2 mg IV severe pain every 4 -Bowel regimen -DC IV fluid, patient has good oral intake -DC Flynn catheter -Orthopedic is on board -PT evaluation with toe touch weightbearing -Suggestion for discharge to short-term rehabilitation -Continue incentive spirometry, patient is on 2 L oxygen, she has no history of home oxygen -Titrate oxygen as tolerated, maintain saturation more than 92% #Anemia of acute blood loss -Hemoglobin 7.3<8.3<10.5 -Patient is post op Day 1 -We'll transfer 1 unit of blood -Follow CBC tomorrow -Patient denied chest pain, palpitation, weakness, lightheadedness #Multiple Myeloma: Pt on weekly Revlimid and followed by Dr. King. Chronic and stable. -Continue Revlimid once a week every Tuesday #HTN: -Continue carvedilol 12.5 twice a day by mouth -Continue aspirin 81 mg by mouth daily -Echocardiogram is pending -Cardiology clearance for surgery was obtained by Dr. Marie FULL CODE Heart healthy diet DVT prophylaxis Alps and heparin subcutaneous Consultation orthopedic surgery, cardiology, PT Problem List: 1. Fall 2. Subcapital fracture of femur Pain Ratin Pain Location: Left hip pain, bilateral dorsal surface of feet Pain Goal: Pain 4 or less Pain Plan: Severe pain pathway Tomorrow's Labs & Rationales: CBC, CMP TREY CAMPOS MD 01/10/178: Attending MD Review Statement Attending Statement Attending MD Statement: examined this patient, discuss w/resident/PA/SAVINGS COUNSELOR, agreed w/resident/PA/SAVINGS COUNSELOR, discussed with family, reviewed EMR data (avail), discussed with nursing, discussed with case mgmt, amended to note Attending Assessment/Plan: The patient was seen and discussed with house staff. Agree with plan of care as outlined.
--- NOTE | 2017-01-10 08:02 | PN- Orthopedic ---
Subjective Subjective: NAEO. Patient states the top of her left foot hurts and is 4-5/10. Left thigh pain tolerable. No further c/o. Tolerating PO without n/v. +flatus. Has not bee OOB with PT. Denies CP/SOB. Objective Vital Signs and I&Os Vital Signs Date Time Temp Pulse Resp B/P Pulse O2 O2 Flow FiO2 Ox Delivery Rate 01/10 0651 98.7 84 20 138/68 92 Nasal 2.0L Cannula 01/10 0327 98.1 75 20 134/66 91 Nasal 2.0L Cannula 01/10 0000 Nasal 2.0L Cannula 01/09 2237 138/64 01/09 2216 97.6 68 22 138/64 94 Room Air 01/09 1808 97.6 66 16 142/60 93 Nasal 2.0L Cannula 01/09 1600 93 Nasal 2.0L Cannula 01/09 1502 98.4 64 20 164/76 96 Nasal 2.0L Cannula 01/09 1037 Nasal 2.0L Cannula 01/09 0800 96 Nasal 2.0L Cannula Intake & Output 01/10 0800 01/10 0000 01/09 1600 01/09 0800 01/09 0000 01/08 1600 Intake Total 600 720 630 600 Output Total 290 750 200 600 Balance 310 -30 430 0 Intake, IV 600 600 600 600 Intake, Oral 120 30 Number 2 Bowel Movements Output, Urine 290 750 200 600 Patient 111 lb 110 lb Weight Physical Exam: General: NAD, comfortable, A&Ox3 Chest: CTAB. Heart S1S2 normal. Abdomen: soft, nontender, nondistended. Ext: Left thigh with mild swelling but compartments soft, appropriately tender to palpation. Left thigh incision dressing with small amount of blood spotting otherwise clean dry and intact. Left foot without erythema, swelling, or any obvious deformities. Feet appear symmetrical. Left foot is tender to palpation on the dorsal aspect without any palpable abnormalities. Mild pain on active range of motion. No calve swelling/TTP, neurovascularly intact bilateral lower extremities Current Medications: Current Medications Sig/Suresh Start time Last Medication Dose Route Stop Time Status Admin Acetaminophen 1,000 MG Q6P PRN 01/09 0015 DC IV Aspirin 81 MG DAILY 01/10 1000 AC PO Carvedilol 12.5 MG BID 01/09 0030 AC 01/09 PO 2237 Cefazolin Sodium 1,000 MG IQ8 01/10 0000 AC 01/09 IV 01/10 0801 2343 Diphenhydramine HCl 25 MG Q6P PRN 01/09 0015 AC IV Dorzolamide HCl 1 GTT DAILY 01/09 1000 AC 01/09 OPH 0849 Fentanyl Citrate 250 MCG .STK-MED ONE 01/09 1513 DC IM 01/09 1514 Heparin Sodium 5,000 UNIT Q8 01/09 0600 AC 01/10 (Porcine) SC 0531 Hydromorphone HCl 2 MG .STK-MED ONE 01/09 1513 DC IM 01/09 1514 Morphine Sulfate 2 MG Q4P PRN 01/09 0015 AC 01/10 IV 0530 Ondansetron HCl 4 MG Q6P PRN 01/09 0015 AC IV Oxycodone/ 1 TAB Q4P PRN 01/09 1715 AC Acetaminophen PO Oxycodone/ 2 TAB Q4P PRN 01/09 1715 AC Acetaminophen PO Sodium Chloride 1,000 ML .[id number] 01/09 0015 AC 01/09 IV 2347 Timolol Maleate 1 GTT DAILY 01/09 1000 AC 01/09 OPH 0850 Results Last 48 Hours of Labs: Laboratory Tests 01/10 01/09 0636 0630 Chemistry Sodium (137 - 145 mmol/L) Pending 137 Potassium (3.5 - 5.1 mmol/L) Pending 4.2 Chloride (98 - 107 mmol/L) Pending 103 Carbon Dioxide (22 - 30 mmol/L) Pending 26 Anion Gap (5 - 16) Pending 7 BUN (7 - 17 mg/dL) Pending 21 H Creatinine (0.5 - 1.0 mg/dL) Pending 1.3 H Estimated GFR (>60 ml/min) 39 L BUN/Creatinine Ratio (7 - 25 %) Pending 16.2 Hematology CBC w Diff Pending NO MAN DIFF REQ WBC (4.8 - 10.8 /CUMM) Pending 9.5 RBC (4.20 - 5.40 /CUMM) Pending 2.68 L Hgb (12.0 - 16.0 G/DL) Pending 8.3 L Hct (37 - 47 %) Pending 25.3 L MCV (81.0 - 99.0 FL) Pending 94.4 MCH (27.0 - 31.0 PG) Pending 30.9 RDW (11.5 - 14.5 %) Pending 16.0 H Plt Count (130 - 400 /CUMM) Pending 144 MPV (7.4 - 10.4 FL) Pending 9.7 Gran % (42.2 - 75.2 %) 84.8 H Lymphocytes % (20.5 - 51.1 %) 5.6 L Monocytes % (1.7 - 9.3 %) 6.8 Eosinophils % (0 - 5 %) 2.6 Basophils % (0.0 - 2.0 %) 0.2 Absolute Granulocytes (1.4 - 6.5 /CUMM) 8.1 H Absolute Lymphocytes (1.2 - 3.4 /CUMM) 0.5 L Absolute Monocytes (0.10 - 0.60 /CUMM) 0.6 Absolute Eosinophils (0.0 - 0.7 /CUMM) 0.3 Absolute Basophils (0.0 - 0.2 /CUMM) 0 PUBS MCHC (33.0 - 37.0 G/DL) Pending 32.7 L 01/09 2212 Chemistry Sodium (137 - 145 mmol/L) 138 Potassium (3.5 - 5.1 mmol/L) 3.9 Chloride (98 - 107 mmol/L) 100 Carbon Dioxide (22 - 30 mmol/L) 26 Anion Gap (5 - 16) 12 BUN (7 - 17 mg/dL) 22 H Creatinine (0.5 - 1.0 mg/dL) 1.2 H Estimated GFR (>60 ml/min) 43 L BUN/Creatinine Ratio (7 - 25 %) 18.3 Glucose (65 - 99 mg/dL) 95 Calcium (8.4 - 10.2 mg/dL) 9.8 Total Bilirubin (0.2 - 1.3 mg/dL) 0.8 AST (14 - 36 U/L) 40 H ALT (9 - 52 U/L) 36 Alkaline Phosphatase (<127 U/L) 69 Troponin I (< 0.11 ng/ml) < 0.01 Total Protein (6.3 - 8.2 g/dL) 6.9 Albumin (3.5 - 5.0 g/dL) 4.4 Globulin (1.9 - 4.2 gm/dL) 2.5 Albumin/Globulin Ratio (1.1 - 2.2 %) 1.8 Coagulation PT (9.4 - 12.5 SEC) 11.3 INR (0.90 - 1.19) 1.08 APTT (25 - 37 SEC) 27 Hematology CBC w Diff NO MAN DIFF REQ WBC (4.8 - 10.8 /CUMM) 10.6 RBC (4.20 - 5.40 /CUMM) 3.40 L Hgb (12.0 - 16.0 G/DL) 10.5 L Hct (37 - 47 %) 32.5 L MCV (81.0 - 99.0 FL) 95.6 MCH (27.0 - 31.0 PG) 30.9 RDW (11.5 - 14.5 %) 15.7 H Plt Count (130 - 400 /CUMM) 174 MPV (7.4 - 10.4 FL) 9.6 Gran % (42.2 - 75.2 %) 91.6 H Lymphocytes % (20.5 - 51.1 %) 6.2 L Monocytes % (1.7 - 9.3 %) 1.4 L Eosinophils % (0 - 5 %) 0.8 Basophils % (0.0 - 2.0 %) 0 L Absolute Granulocytes (1.4 - 6.5 /CUMM) 9.7 H Absolute Lymphocytes (1.2 - 3.4 /CUMM) 0.7 L Absolute Monocytes (0.10 - 0.60 /CUMM) 0.1 L Absolute Eosinophils (0.0 - 0.7 /CUMM) 0.1 Absolute Basophils (0.0 - 0.2 /CUMM) 0 PUBS MCHC (33.0 - 37.0 G/DL) 32.4 L Assessment/Plan Assessment/Plan 86yo F POD#1 status post left femoral pinning. AVSS. Patient progressing well. Recommendations: - pain control - PRN antiemetics - bowel regimen - DC muñoz - OOB with PT, toe touch weight bearing - sc heparin and ALPS for DVT PPx - obtain left foot xrays to rule out fx - care per primary team - will d/w attending
[2017-01-10 08:43] LABS: ABSOLUTE BASOPHIL COUNT 0 /CUMM (0.0-0.2); ABSOLUTE EOSINOPHIL COUNT 0.3 /CUMM (0.0-0.7); ABSOLUTE GRANULOCYTE CT 4.3 /CUMM (1.4-6.5); ABSOLUTE LYMPH COUNT 0.5 /CUMM (1.2-3.4); ABSOLUTE MONOCYTE COUNT 0.4 /CUMM (0.10-0.60); BASOPHIL % 0.5 % (0.0-2.0); EOSINOPHIL % 5.4 % (0-5); GRANULOCYTE % 77.5 % (42.2-75.2); HEMATOCRIT 22.3 % (37-47); MEAN CORPUSCULAR HGB 31.4 PG (27.0-31.0); MEAN CORPUSCULAR HGB CONC 32.8 G/DL (33.0-37.0); MEAN CORPUSCULAR VOLUME 95.6 FL (81.0-99.0); MEAN PLATELET VOLUME 10.5 FL (7.4-10.4); PLATELET COUNT 121 /CUMM (130-400); RBC DISTRIBUTION WIDTH 15.9 % (11.5-14.5); RED BLOOD CELL CT 2.33 /CUMM (4.20-5.40); WHITE BLOOD CELL COUNT 5.6 /CUMM (4.8-10.8)
--- NOTE | 2017-01-10 14:19 | Discharge Summary ---
See Addendum Visit Information Visit Dates Admission Date: 01/08/17 Discharge Date: 01/11/17 Hospital Course Course Attending Physician: MONIKA PATEL MD Primary Care Physician: BRIANA ALCANTAR MD Hospital Course: 86 yo F with h/o HTN, CAD s/p stent (20 yrs ago), multiple myeloma on Revlimid and dexamethasone (follows Dr. King @ [facility]), osteoarthritis, chronic pain on tramadol, osteoporosis (receives infusions, last in Oct 2016), is here s/p mechanical fall sustaining a left subcapital femoral fracture. ED workup: Vitals: 97.0, 66, 18, 188/87, 97. CBC shows white count 10.6, hemoglobin 10.5, hematocrit 32.5, platelet 174. INR 1.08. Sodium 138, potassium 3.9, chloride 100, CO2 26, BUN 22, creatinine 1.2 CT PELVIS IMPRESSION: Subcapital left femoral fracture without displacement or angulation. Hospital course: # Subcapital left femoral fracture: She was evaluated by orthopedics and underwent ORIF after being cleared by cardiology for the procedure. the RCRI risk index was low. Postprocedure,patient was maintained on IV fluids, pain control with Percocet and morphine. DVT and GI prophylaxis was with subcutaneous heparin and Protonix. She was put on a bowel regimen. PT was on board. Supplemental oxygen was provided as needed. Patient was transfused 1 unit of blood for acute blood loss anemia post procedure. She developed a febrile reaction post the transfusion which resolved with tylenol. Her post transfusion hematocrit was good and patient remained hemodynamically stable throughout the hospital stay. Patient worked with PT with toe touch instructions from orthopedics. She was discharged to short-term rehabilitation with instructions to follow up with orthopedics in 2 weeks. #Acute blood loss anemia.: Hemoglobin dropped by 3 points after the procedure and patient was transfused 1 unit of packed red blood cell. She developed a febrile reaction post the transfusion which resolved with tylenol. CBC was followed up regularly. There were no signs of developing hematoma hematoma/ bleeding on physical examination. Hematocrit remained stable during the reamaining hospital stay. #Multiple Myeloma: Pt on weekly Revlimid and followed by Dr. King. Chronic and stable. Continued Revlimid once a week every Tuesday #HTN: Continued on home meds carvedilol 12.5 twice a day, aspirin. Echo showed a normal EF of 70% with mild LVH, mild MR and TR, trace to mild AI and a trace to small pericardial effusion. At discharge aspirin and carvedilol was continued. Atorvastatin was restarted. Medications amlodipine and Lasix was discontinued as patient was doing well with well controlled BP of these medications. FULL CODE Heart healthy diet DVT prophylaxis Alps and heparin subcutaneous Consultation orthopedic surgery, cardiology, PT Allergies: Coded Allergies: lactose (Intermediate, INTOLERANT 01/09/17) Disposition Summary Disposition Principal Diagnosis: #Subcapital left femoral fracture: Additional Diagnosis: #Anemia of acute blood loss Discharge Disposition: SNF Discharge Instructions General Discharge Information Code Status: Full Code Patient's Diet: HEART HEALTHY Patient's Activity: PER ORTHOPEDIC, toe-touch weightbearing Follow-Up Instructions/Appts: Please follow-up with your PCP within 1 week of discharge. Please follow-up with your orthopedic doctor within 2 weeks of discharge. Please continue physical therapy post discharge. Please continue to hold amlodipine and Lasix post discharge Medications at Discharge Discharge Medications: Stop taking the following medications: Amlodipine Besylate (Amlodipine Besylate) 5 MG TABLET ORAL DAILY Qty = 90 Furosemide (Lasix) 40 MG TABLET ORAL as needed for DIURETIC Continue taking these medications: Atorvastatin Calcium (Atorvastatin Calcium) 80 MG TABLET 1 Tablet ORAL DAILY Qty = 90 Comments: LAST DOSE GIVEN 01/11/17 AT 5:00 PM Carvedilol (Carvedilol) 12.5 MG TABLET 1 Tablet ORAL TWICE DAILY Qty = 180 Comments: LAST DOSE GIVEN 01/12/17 AT 10:00 AM Dorzolamide HCl/Timolol Maleat (Dorzolamide-Timolol Eye Drops) 22.3 MG-6.8 MG/ML DROPS 1 Drop In the eye DAILY Qty = 10 Comments: LAST DOSE GIVEN 01/12/17 AT 10:00 AM Omeprazole Magnesium (Prilosec Otc) 20 MG TABLET.DR 1 Tablet ORAL DAILY Allopurinol (Allopurinol) 100 MG TABLET 1 Tablet ORAL DAILY Qty = 30 Comments: NOT GIVEN WHILE HOSPITALIZED Lenalidomide (Revlimid) 25 MG CAPSULE 1 Capsule ORAL EVERY TUESDAY Qty = 4 Comments: LAST DOSE GIVEN 01/11/17 10:00 PM Dexamethasone (Dexamethasone) 4 MG TABLET 5 Tablet ORAL Q28D Qty = 5 Comments: NOT GIVEN WHILE HOSPITALIZED Aspirin (Ecotrin*) 81 MG TABLET. 162 Milligram ORAL DAILY Comments: LAST DOSE GIVEN 01/12/17 AT 10:00 AM Multivit-Min/Iron/Folic/Lutein (Centrum Silver Women Tablet) 8 MG IRON-400 MCG- 300 MCG TABLET 1 Tablet ORAL DAILY Comments: NOT GIVEN WHILE HOSPITALIZED Calcium Polycarbophil (Konsyl Fiber) (Unknown Strength) TABLET Unknown Dose ORAL TWICE DAILY Comments: NOT GIVEN WHILE HOSPITALIZED Calcium Carbonate/Vitamin D3 (Caltrate 600 + D Tablet) (Unknown Strength) TABLET Unknown Dose ORAL DAILY Gabapentin (Neurontin) 100 MG CAPSULE 1 Capsule ORAL THREE TIMES DAILY Comments: NOT GIVEN WHILE HOSPITALIZED Cyanocobalamin (Vitamin B-12) 1,000 MCG TABLET 1 Tablet ORAL DAILY Comments: NOT GIVEN WHILE HOSPITALIZED [METAFOLIN] 800 Microgram ORAL DAILY Comments: NOT GIVEN WHILE HOSPITALIZED Start taking the following new medications: Docusate Sodium (Docusate Sodium) 100 MG CAPSULE 100 Milligram ORAL DAILY NEEDED as needed for CONSTIPATION Days = 30 No Refills Comments: LAST DOSE GIVEN 01/12/17 AT 10:00 AM Tramadol HCl (Tramadol HCl) 50 MG TABLET 50 Milligram ORAL Every 4 hours as needed for PAIN SCALE 4-6 (MODERATE) Days = 30 No Refills Comments: LAST DOSE GIVEN 01/12/17 AT 12:00 PM Copies To: STEPHANIE FORRESTER,OCTAVIO Gregg; TREY CAMPOS MD Attending Review Statement Documenting Attending: TREY CAMPOS MD Other Findings: The patient was seen on the day of discharge and agree with the plan of care upon discharge. STR as planned.
[2017-01-10] MEDS ORDERED: PERCOCET 5-3251 EACH PO (14:22)
--- NOTE | 2017-01-10 14:23 | Patient Discharge Instructions ---
Discharge Instructions General Discharge Information You were seen/treated for: Subcapital left femoral fracture Special Instructions: #1please follow-up with pcp within 1 week of discharge. #2 please follow up with orthopedic doctor within 2 weeks of discharge. # TOE TOUCH WEIGHT BEARING TO LEFT LOWER EXTREMITY. # DRY DREDDING CHANGE EVERYDAY TO SURGICAL SITE. # PLEASE CHECK CBC IN 1 WEEK 01/19/17 Diet Continue normal diet: No Recommended Diet: Heart Healthy Acute Coronary Syndrome Inclusion Criteria At DC or during hospital stay patient has or had the following: ACS DIAGNOSIS No Discharge Core Measures Meds if any: Prescribed or Continued at Discharge Meds if any: NOT Prescribed or Continued at Discharge Congestive Heart Failure Inclusion Criteria At DC or during hospital stay patient has or had the following: CHF DIAGNOSIS No Discharge Core Measures Meds if any: Prescribed or Continued at Discharge Meds if any: NOT Prescribed or Continued at Discharge Cerebrovascular accident Inclusion Criteria At DC or during hospital stay patient has or had the following: CVA/TIA Diagnosis No Discharge Core Measures Meds if any: Prescribed or Continued at Discharge Meds if any: NOT Prescribed or Continued at Discharge Venous thromboembolism Inclusion Criteria VTE Diagnosis No VTE Type NONE VTE Confirmed by (Test) NONE Discharge Core Measures - Per Current guidelines, there needs to be overlap - treatment for the first 5 days of Warfarin therapy. - If discharged on Warfarin prior to 5 days of - overlap therapy, the patient will need to be - assessed for post discharge needs including - *Post discharge parental anticoagulation - *Warfarin and/or parental anticoagulation education - *Follow up date to check INR post discharge At least 5 days overlap therapy as Inpatient No Meds if any: Prescribed or Continued at Discharge Note: Overlap Therapy is Warfarin and Anticoagulant Meds if any: NOT Prescribed or Continued at Discharge
[2017-01-10 15:39] VITALS: BP 124/78
[2017-01-10 18:20] VITALS: BP 148/80
[2017-01-11 06:31] VITALS: BP 122/60
--- NOTE | 2017-01-11 07:21 | PN- Housestaff ---
ELODIA FORRESTER,[facility] 01/11/17 0721: Subjective Follow-up For: Mechanical fall Left femoral ORIF POD#2 History of carotid artery disease status post stent Anemia of acute blood loss Subjective: Patient was seen and examined this morning, she denied any left hip pain on rest , pain. Pain precipitated by ambulation. Patient denied any feet pain, she denied any chest pain, palpitation, shortness of breath. Patient denied abdominal pain, GI symptoms, no bowel movement yet. Patient reported that she didn't urinate since the nurse took the Flynn catheter yesterday at 2 PM, nurse reported that the patient urinate 75 mL overnight and although she had urgency to urinate there was no urine output. Overnight events, patient had fever of 100.2 after transfusion, resolved. Review of Systems Constitutional: Reports: see HPI. Objective Last 24 Hrs of Vital Signs/I&O Vital Signs Date Time Temp Pulse Resp B/P Pulse O2 O2 Flow FiO2 Ox Delivery Rate 01/11 0631 98.2 67 22 122/60 94 Nasal 2.0L Cannula 01/11 0000 Nasal 2.0L Cannula 01/10 2237 98.6 69 20 96 Room Air 01/10 2228 148/66 01/10 1820 100.2 79 18 148/80 93 Nasal 3.0L Cannula 01/10 1539 98.7 78 20 124/78 93 Nasal 2.0L Cannula 01/10 0939 Nasal 2.0L Cannula Intake & Output 01/11 1600 01/11 0800 01/11 0000 Intake Total 120 120 Output Total 300 375 Balance -180 -255 Intake, Oral 120 120 Output, Urine 300 375 Physical Exam General Appearance: Alert, Oriented X3, Cooperative, No Acute Distress Skin: No Rashes, No Breakdown, No Significant Lesion HEENT: Atraumatic, PERRLA, EOMI, Mucous Membr. moist/pink Neck: Supple, No JVD Cardiovascular: Regular Rate, Normal S1, Normal S2, No Murmurs Lungs: Clear to Auscultation, Normal Air Movement Abdomen: Normal Bowel Sounds, Soft, No Tenderness Neurological: Normal Gait, Normal Speech, Strength at 5/5 X4 Ext, Normal Tone, Sensation Intact, Cranial Nerves 3-12 NL, Reflexes 2+ Extremities: No Clubbing, No Cyanosis, No Edema, Normal Pulses Assessment/Plan Assessment: Ms. Galaviz is 86-year-old female past medical history significant for single for CAD status post stent, multiple myeloma on Revlimid, hypertension, diabetes, chronic pain who was brought in by ambulance for chief complaint of hip pain status post mechanical fall. CT confirms subcapital left femoral fracture without displacement. CT PELVIS IMPRESSION: Subcapital left femoral fracture without displacement or angulation. Plan: #Subcapital left femoral fracture: -Status post ORIF Day 2 -Optimal pain control: Percocet 1 tab mild pain every 4 hours, Percocet 2 tabs moderate pain every 4, morphine 2 mg IV severe pain every 4 -Bowel regimen -Orthopedic is on board -PT evaluation with toe touch weightbearing -Suggestion for discharge to short-term rehabilitation -Continue incentive spirometry -Titrate oxygen as tolerated, maintain saturation more than 92% #Decrease urine output -Mostly related to anticholinergic effect of opioids Percocet and morphine for pain -BladderScan yielded 500 mL -Straight cath once -UA and urine culture #Anemia of acute blood loss -Hemoglobin 8.5 <7.3<8.3<10.5 -Patient is post op Day 2 -1 unit of blood was transfused -Patient denied chest pain, palpitation, weakness, lightheadedness #Multiple Myeloma: Pt on weekly Revlimid and followed by Dr. King. Chronic and stable. -Continue Revlimid once a week every Tuesday #HTN: -Continue carvedilol 12.5 twice a day by mouth -Continue aspirin 81 mg by mouth daily -Cardiology clearance for surgery was obtained by Dr. Marie -Echocardiogram 01/11/17 CONCLUSIONS 1. Normal EF of 70% with impaired LV relaxation. 2. Mild left ventricular hypertrophy. 3. Mild mitral regurgitation. 4. Mild tricuspid regurgitation. 5. Trace to mild aortic regurgitation. 6. Trace to small pericardial effusion. FULL CODE Heart healthy diet DVT prophylaxis Alps and heparin subcutaneous Consultation orthopedic surgery, cardiology, PT Problem List: 1. Subcapital fracture of femur 2. Fall Pain Ratin Pain Location: Left hip pain Pain Goal: Pain 4 or less Pain Plan: Severe pain pathway Tomorrow's Labs & Rationales: TREY MONIQUE MD 01/11/17 2131: Attending Review Statement Attending Statement Attending MD Statement: examined this patient, discuss w/resident/PA/PHARMACY INTERN, agreed w/resident/PA/PHARMACY INTERN, reviewed EMR data (avail), discussed with nursing, discussed with case mgmt, amended to note Attending Assessment/Plan: The patient was seen and discussed with house staff. Agree with the plan of care as outlined.
--- NOTE | 2017-01-11 07:57 | ECHOCARDIOGRAM REPORT ---
JEREMY GARCIA Age: 86 : 1930 Gender: F Exam Date: 01/10/2017 16:42 Exam Location: [address] [place] [address] Ht (in): 57 Wt (lb): 109 BSA: 1.42 BP: 136 / 58 Ordering Physician: BASIL PIERRE MD Referring Physician: Brain Marie MD, PhD Technologist: Matilde Hamm [facility] Room Number: [id number] Indications: HEART FAILURE Rhythm: Sinus Technical Quality: good FINDINGS Left Ventricle Normal left ventricular size with mild left ventricular hypertrophy. Normal systolic function with no obvious regional wall motion abnormalities. Diastolic filling pattern is consistent with impaired LV relaxation. The ejection fraction is visually estimated at 70%. Right Ventricle The right ventricle is normal in size and function. Right Atrium The right atrium is normal in size. Left Atrium The left atrium is normal in size. The interatrial septum is intact. Mitral Valve The mitral valve demonstrates moderate posterior annular calcification with nromal function. There is mild mitral regurgitation. Aortic Valve Mildly sclerotic aortic valve without significant stenosis. There is trace to mild aortic regurgitation. Tricuspid Valve The tricuspid valve is normal in structure and function. There is mild tricuspid regurgitation. Pulmonary artery systolic pressure is normal. Pulmonic Valve Structurally normal pulmonic valve. There is no pulmonic regurgitation. Pericardium Normal pericardium with trace to small effusion. No pleural effusion. Great Vessels Normal aortic root dimension. The aortic arch and great vessels are well seen and are normal. CONCLUSIONS 1. Normal EF of 70% with impaired LV relaxation. 2. Mild left ventricular hypertrophy. 3. Mild mitral regurgitation. 4. Mild tricuspid regurgitation. 5. Trace to mild aortic regurgitation. 6. Trace to small pericardial effusion. Brain Marie M.D. (Electronically Signed) Final Date: 11 January 2017 07:56 MEASUREMENTS (Male / Female) Normal Values 2D ECHO LV Diastolic Diameter PLAX 3.9 cm 4.2 - 5.9 / 3.9 - 5.3 cm LV Systolic Diameter PLAX 2.3 cm 2.1 - 4.0 cm LV Fractional Shortening PLAX 41.0 % 25 - 46 % LV Ejection Fraction 2D Teich 72.5 % IVS Diastolic Thickness 1.3 cm LVPW Diastolic Thickness 1.3 cm LV Relative Wall Thickness 0.7 RV Internal Dim ED PLAX 2.2 cm 1.9 - 3.8 cm LVOT Diameter 2.0 cm Aortic Root Diameter 3.3 cm LA Systolic Diameter LX 2.8 cm 3.0 - 4.0 / 2.7 - 3.8 cm LA Volume 26.0 cm 18 - 58 / 22 - 52 cm Ascending Aorta Diameter 3.6 cm DOPPLER AV Peak Velocity 188.0 cm/s AV Peak Gradient 14.1 mmHg AV Mean Velocity 142.0 cm/s AV Mean Gradient 9.0 mmHg AV Velocity Time Integral 46.3 cm LVOT Peak Velocity 124.0 cm/s LVOT Peak Gradient 6.2 mmHg LVOT Mean Velocity 86.9 cm/s LVOT Mean Gradient 3.0 mmHg LVOT Velocity Time Integral 26.9 cm LVOT Stroke Volume 84.5 cm AV Area Cont Eq vti 1.8 cm AV Area Cont Eq pk 2.1 cm MV Peak Velocity 172.0 cm/s MV Peak Gradient 11.8 mmHg MV Mean Velocity 80.0 cm/s MV Mean Gradient 3.0 mmHg Mitral E Point Velocity 71.8 cm/s Mitral A Point Velocity 123.0 cm/s Mitral E to A Ratio 0.6 MV PHT Velocity 102.0 cm/s MV Deceleration [place] 379.0 cm/s MV Pressure Half Time 80.7 ms MV Area PHT 2.7 cm MV Deceleration Time 251.0 ms TR Peak Velocity 267.0 cm/s TR Peak Gradient 28.5 mmHg Right Atrial Pressure 5.0 mmHg Pulmonary Artery Systolic Pressu 33.5 mmHg Right Ventricular Systolic Press 33.5 mmHg PV Peak Velocity 86.8 cm/s PV Peak Gradient 3.0 mmHg PV Mean Velocity 61.3 cm/s PV Mean Gradient 2.0 mmHg PV Velocity Time Integral 21.3 cm LV E' Lateral Velocity 8.5 cm/s Mitral E to LV E' Lateral Ratio 8.5 LV E' Septal Velocity 11.6 cm/s Mitral E to LV E' Septal Ratio 6.2
[2017-01-11 08:09] LABS: ABSOLUTE BASOPHIL COUNT 0 /CUMM (0.0-0.2); ABSOLUTE EOSINOPHIL COUNT 0.4 /CUMM (0.0-0.7); ABSOLUTE GRANULOCYTE CT 3.5 /CUMM (1.4-6.5); ABSOLUTE LYMPH COUNT 0.7 /CUMM (1.2-3.4); ABSOLUTE MONOCYTE COUNT 0.6 /CUMM (0.10-0.60); BASOPHIL % 0.9 % (0.0-2.0); EOSINOPHIL % 7.7 % (0-5); GRANULOCYTE % 67.2 % (42.2-75.2); HEMATOCRIT 25.6 % (37-47); MEAN CORPUSCULAR HGB 31.5 PG (27.0-31.0); MEAN CORPUSCULAR HGB CONC 33.3 G/DL (33.0-37.0); MEAN CORPUSCULAR VOLUME 94.8 FL (81.0-99.0); MEAN PLATELET VOLUME 9.9 FL (7.4-10.4); RBC DISTRIBUTION WIDTH 16.1 % (11.5-14.5); WHITE BLOOD CELL COUNT 5.3 /CUMM (4.8-10.8)
--- NOTE | 2017-01-11 08:35 | PN- Orthopedic ---
Subjective Subjective: The patient was seen this morning postoperatively day #2. She reports that her pain is under adequate control with Vicodin. She has no complaints the current time is eager to get out of bed this morning. Objective Vital Signs and I&Os Vital Signs Date Time Temp Pulse Resp B/P Pulse O2 O2 Flow FiO2 Ox Delivery Rate 01/11 0631 98.2 67 22 122/60 94 Nasal 2.0L Cannula 01/11 0000 Nasal 2.0L Cannula 01/107 98.6 69 20 96 Room Air 01/10 2228 148/66 01/10 1820 100.2 79 18 148/80 93 Nasal 3.0L Cannula 01/10 1539 98.7 78 20 124/78 93 Nasal 2.0L Cannula 01/10 0939 Nasal 2.0L Cannula 01/10 0901 92 136/58 Intake & Output 01/11 1600 01/11 0800 01/11 0000 01/10 1600 01/10 0800 01/10 0000 Intake Total 349 342 6996 600 720 Output Total 300 375 150 290 750 Balance -180 -255 870 310 -30 Intake, IV 300 600 600 Intake, Oral 120 120 720 120 Output, Urine 300 375 150 290 750 Patient 110 lb Weight Physical Exam: Gen.: Alert and in no obvious distress Skin: Warm and dry Extremities: Bilateral lower extremities are warm without calf tenderness. Gross motor and sensory are intact. Left hip surgical dressing is blood-tinged but otherwise intact without signs of infection. Thigh compartments are soft and there is some expected ecchymosis. Assessment/Plan Assessment/Plan Assessment: 86-year-old female status post left hip ORIF secondary to fracture postoperative day #2. The patient is progressing as expected and her pain is under adequate control. Recommendations: Follow-up morning laboratory studies Out of bed with physical therapy patient is toe-touch weightbearing Daily dry dressing change to surgical site Continue current pain regiment GI and DVT prophylaxis Continue care per primary team
[2017-01-11 09:24] LABS: PLATELET COUNT 112 /CUMM (130-400)
--- NOTE | 2017-01-11 13:54 | PN- Cardiology ---
Subjective Subjective: * Doing well following surgery except for mild left hip pain. No chest discomfort, shortness of breath, lightheadedness or palpitations. * Moderate anemia with H/H of 8.5/25.6 * Echo shows a normal EF of 70% with mild LVH, mild MR and TR, trace to mild AI and a trace to small pericardial effusion. Objective Vital Signs and I&Os Vital Signs Date Time Temp Pulse Resp B/P Pulse O2 O2 Flow FiO2 Ox Delivery Rate 01/11 1045 122/60 01/11 0800 94 Room Air 1.0L 01/11 0631 98.2 67 22 122/60 94 Nasal 2.0L Cannula 01/11 0000 Nasal 2.0L Cannula 01/10 2237 98.6 69 20 96 Room Air 01/10 2228 148/66 01/10 1820 100.2 79 18 148/80 93 Nasal 3.0L Cannula 01/10 1539 98.7 78 20 124/78 93 Nasal 2.0L Cannula Intake & Output 01/11 1600 01/11 0800 01/11 0000 01/10 1600 01/10 0800 01/10 0000 Intake Total 585 808 9283 600 720 Output Total 500 300 375 150 290 750 Balance -500 -180 -255 870 310 -30 Intake, IV 300 600 600 Intake, Oral 120 120 720 120 Output, Urine 500 300 375 150 290 750 Patient 110 lb Weight Physical Exam: General: WD/ WN female in NAD; alert and oriented x 3 Neck: no JVD, no carotid bruit Heart: RRR with 3/6 systolic murmur at the RUSB Lungs: clear bilaterally Extremities: no edema Assessment/Plan Assessment/Plan * This patient is doing well following surgery with no evidence of myocardial ischemia or decompensated congestive heart failure. * Continue aspirin and Carvedilol. Restart her statin. I would hold off on Amlodipine or Lasix since this patient is doing well with well controlled BP off these medications. Continue telemetry? No
[2017-01-11 14:44] VITALS: BP 169/82
[2017-01-11 22:28] VITALS: BP 172/80
[2017-01-12 06:51] VITALS: BP 160/74
--- NOTE | 2017-01-12 07:30 | PN- Housestaff ---
ELODIA FORRESTER,[facility] 01/12/17 0730: Subjective Follow-up For: Mechanical fall Left femoral ORIF POD#2 History of carotid artery disease status post stent Anemia of acute blood loss Subjective: Patient was seen and examined this morning, she reported feeling okay in terms of left hip pain, she does report some dizziness to the nurse. Vital signs are stable. Nurse reported that patient wasn't able to urinate yesterday and they had to do straight cath that yielded 200 mL. Review of Systems Constitutional: Reports: see HPI. Objective Last 24 Hrs of Vital Signs/I&O ss Physical Exam General Appearance: Alert, Oriented X3, Cooperative, No Acute Distress Skin: No Rashes, No Breakdown, No Significant Lesion HEENT: Atraumatic, PERRLA, EOMI, Mucous Membr. moist/pink Neck: Supple, No JVD Cardiovascular: Regular Rate, Normal S1, Normal S2, No Murmurs Lungs: Clear to Auscultation, Normal Air Movement Abdomen: Normal Bowel Sounds, Soft, No Tenderness Neurological: Normal Gait, Normal Speech, Strength at 5/5 X4 Ext, Normal Tone, Sensation Intact, Cranial Nerves 3-12 NL, Reflexes 2+ Extremities: No Clubbing, No Cyanosis, No Edema, Normal Pulses Assessment/Plan Assessment: Ms. Galaviz is 86-year-old female past medical history significant for single for CAD status post stent, multiple myeloma on Revlimid, hypertension, diabetes, chronic pain who was brought in by ambulance for chief complaint of hip pain status post mechanical fall. CT confirms subcapital left femoral fracture without displacement. CT PELVIS IMPRESSION: Subcapital left femoral fracture without displacement or angulation. Plan: #Subcapital left femoral fracture: -Status post ORIF Day 3 -Optimal pain control: Percocet 1 tab mild pain every 4 hours, Percocet 2 tabs moderate pain every 4, morphine 2 mg IV severe pain every 4 -Bowel regimen -Orthopedic is on board -PT evaluation with toe touch weightbearing -Suggestion for discharge to short-term rehabilitation -Continue incentive spirometry -Titrate oxygen as tolerated, maintain saturation more than 92% #Decrease urine output -Mostly related to anticholinergic effect of opioids Percocet and morphine for pain -UA negative for UTI and urine culture negative so far #Anemia of acute blood loss -Hemoglobin stable 8.6 <8.5 <7.3<8.3<10.5 -Patient is post op Day 3 -1 unit of blood was transfused -Patient denied chest pain, palpitation, weakness, lightheadedness #Multiple Myeloma: Pt on weekly Revlimid and followed by Dr. King. Chronic and stable. -Continue Revlimid once a week every Tuesday #HTN: -Continue carvedilol 12.5 twice a day by mouth -Continue aspirin 81 mg by mouth daily -Cardiology clearance for surgery was obtained by Dr. Marie -Echocardiogram 01/11/17 CONCLUSIONS 1. Normal EF of 70% with impaired LV relaxation. 2. Mild left ventricular hypertrophy. 3. Mild mitral regurgitation. 4. Mild tricuspid regurgitation. 5. Trace to mild aortic regurgitation. 6. Trace to small pericardial effusion. FULL CODE Heart healthy diet DVT prophylaxis Alps and heparin subcutaneous Consultation orthopedic surgery, cardiology, PT Problem List: 1. Fall 2. Subcapital fracture of femur Pain Ratin Pain Location: Left hip pain Pain Goal: Pain 4 or less Pain Plan: Moderate pain pathway Tomorrow's Labs & Rationales: None TREY CAMPOS MD 01/12/172054: Attending MD Review Statement Attending Statement Attending MD Statement: examined this patient, discuss w/resident/PA/TEXTILE STYLIST, agreed w/resident/PA/TEXTILE STYLIST, reviewed EMR data (avail), discussed with nursing, discussed with case mgmt, amended to note Attending Assessment/Plan: The patient was seen and discussed with house staff. Agree with the plan of care as outlined. OK to discharge today (abdominal discomfort resolved post BM).
--- NOTE | 2017-01-12 07:36 | PN- Orthopedic ---
Subjective Subjective: 86-year-old female postop day 3 status post left hip cannulated pinning ORIF secondary to femoral neck subcapital fracture. Patient feels well, pain is controlled with current pain regimen. Increased pain with motion to be expected. She is complaining of urinary retention and needed straight cath 2, she also has constipation and was placed on a bowel regimen by primary team. Surgically, she has no complaints Objective Vital Signs and I&Os Vital Signs Date Time Temp Pulse Resp B/P Pulse O2 O2 Flow FiO2 Ox Delivery Rate 01/12 0651 98.2 68 18 160/74 93 Nasal 1.0L Cannula 01/12 0000 Nasal 1.0L Cannula 01/11 2228 98.0 70 18 172/80 94 01/11 2210 70 172/80 01/11 1444 98.5 73 20 169/82 93 Nasal 2.0L Cannula 01/11 1045 122/60 01/11 0800 94 Room Air 1.0L Intake & Output 01/12 0800 01/12 0000 01/11 1600 01/11 0800 01/11 0000 01/10 1600 Intake Total 120 340 156 353 2501 Output Total 225 625 500 300 375 150 Balance -105 -285 -500 -180 -255 870 Intake, IV 300 Intake, Oral 120 340 120 120 720 Output, Urine 225 625 500 300 375 150 Patient 110 lb Weight Laboratory Tests 01/12 01/11 0624 1810 Hematology CBC w Diff Pending WBC Pending RBC Pending Hgb Pending Hct Pending MCV Pending MCH Pending RDW Pending Plt Count Pending MPV Pending PUBS MCHC Pending Urines Urine Color (YEL,AMB,STR) YEL Urine Clarity (CLEAR) CLEAR Urine pH (5.0 - 8.0) 6.0 Ur Specific [place] (1.001 - 1.035) 1.010 Urine Protein (NEG,<30 MG/DL) TRACE H Urine Ketones (NEG) NEG Urine Nitrite (NEG) NEG Urine Bilirubin (NEG) NEG Urine Urobilinogen (0.1 - 1.0 EU/dl) 0.2 Ur Leukocyte Esterase (NEG) NEG Ur Microscopic SEDIMENT EXAMINED Urine WBC (0 - 2 /HPF) RARE Ur Epithelial Cells (NONE,FEW) RARE Urine Mucus (FEW,NONE) RARE Urine Hemoglobin (NEG) NEG Urine Glucose (N MG/DL) NEG Physical Exam: Well-developed well-nourished no apparent distress. HEENT: Atraumatic, extraocular motion intact Neck: Supple, no lymphadenopathy Respiratory: No respiratory distress Extremities: No edema Left lower extremity hip dressing in place, Dressing clean dry and intact Mild thigh edema No signs of infection. No shortening or rotation Hip range of motion is limited and without unexpected pain Neurovascularly intact distally Bilateral calves are supple, nontender. Neuro: Alert and oriented x3 Psych: Mood affect normal, normal memory normal judgment. Skin: Warm and dry, no rash on exposed skin Assessment/Plan Assessment/Plan 86-year-old female status post left hip ORIF/cannulated pinning secondary to subcapital femoral neck fracture postoperative day #3. The patient is progressing as expected and her pain is under adequate control. -Acute blood loss anemia, currently asymptomatic, Follow-up morning laboratory studies-transfuse as needed per primary team -Out of bed with physical therapy patient is toe-touch weightbearing left lower extremity. Will likely need half-way facility -Daily dry dressing change to surgical site daily by nursing staff -Continue current pain regiment -GI and DVT prophylaxis -Urinary retention-care per primary team -Constipation- continued bowel regimen -Continue care per primary team, orthopedically patient is stable, will sign off , please call with any questions or concerns Core Measures/Miscellaneous Venous Thromboembolism VTE Risk Factors: Age > 40, Surgery VTE Contraindications: No Contraindications VTE Diagnosis: No VTE Type: NONE VTE Confirmed by (Test): NONE Beta Omar Is Beta Omar a Home Med? Yes If Yes, Was This Ordered Today? Yes Antibiotics Is Patient on Antibiotics? No
[2017-01-12 08:11] LABS: ABSOLUTE BASOPHIL COUNT 0.1 /CUMM (0.0-0.2); ABSOLUTE EOSINOPHIL COUNT 0.4 /CUMM (0.0-0.7); ABSOLUTE GRANULOCYTE CT 3.4 /CUMM (1.4-6.5); ABSOLUTE LYMPH COUNT 0.9 /CUMM (1.2-3.4); ABSOLUTE MONOCYTE COUNT 0.6 /CUMM (0.10-0.60); BASOPHIL % 1.1 % (0.0-2.0); EOSINOPHIL % 7.3 % (0-5); GRANULOCYTE % 63.4 % (42.2-75.2); HEMATOCRIT 26.1 % (37-47); MEAN CORPUSCULAR HGB 31.2 PG (27.0-31.0); MEAN CORPUSCULAR HGB CONC 32.8 G/DL (33.0-37.0); MEAN PLATELET VOLUME 9.7 FL (7.4-10.4); PLATELET COUNT 133 /CUMM (130-400); RED BLOOD CELL CT 2.75 /CUMM (4.20-5.40); WHITE BLOOD CELL COUNT 5.3 /CUMM (4.8-10.8)
[2017-01-12] MEDS ORDERED: DOCUSATE SODIU100 M3 PO (09:38)
[2017-01-12] MEDS ORDERED: TRAMADOL HCL50 M1 PO (09:44)
[2017-01-12 14:17] VITALS: BP 154/77
[2017-01-12 14:49] VITALS: BP 154/77
== END 2017-01-12 15:30 | DRG 481 ==
LOC: ERH 18:21 → 2NB 22:17 → ERHI 22:17 → 2NB 23:26
PROVIDERS: Internal Medicine Hematology & Oncology; Physician Assistant Medical; Physician Assistant Surgical; Student in an Organized Health Care Education/Training Program; ADMIT Student in an Organized Health Care Education/Training Program
PROC: 0QS904Z Reposition Left Femoral Shaft with Internal Fixation Device, Open Approach (ICD-10-PCS; principal; 2017-01-09)
PROC: 30233N1 Transfusion of Nonautologous Red Blood Cells into Peripheral Vein, Percutaneous Approach (ICD-10-PCS; 2017-01-10)
DX: S72.012A Unspecified intracapsular fracture of left femur, initial encounter for closed fracture (principal); C90.00 Multiple myeloma not having achieved remission; I35.0 Nonrheumatic aortic (valve) stenosis; D62 Acute posthemorrhagic anemia; I25.10 Atherosclerotic heart disease of native coronary artery without angina pectoris; I10 Essential (primary) hypertension; Z95.5 Presence of coronary angioplasty implant and graft; K58.9 Irritable bowel syndrome, unspecified; W18.30XA Fall on same level, unspecified, initial encounter; Y92.009 Unspecified place in unspecified non-institutional (private) residence as the place of occurrence of the external cause; M19.90 Unspecified osteoarthritis, unspecified site; M81.0 Age-related osteoporosis without current pathological fracture
CPT/HCPCS: 2NBSP; 36415; 73502-LT; 73562-LT; 81001; 82436; 86920; 87086; 93005; 93010; 93306; 96372; 97116-GO; 97161-GP; 97530-GO; J0131; J0690; J1200; J1644; J2405; J3490; P9016